=== PATIENT | female | born 1945 ===

== ENCOUNTER 2016-11-14 16:52 | Inpatient (IN) | payer MEDICARE, MEDICAID ==
--- NOTE | 2016-11-14 18:05 | ED PDOC ---
HPI: Back Time Seen by Provider: 11/14/16 17:07 Chief Complaint (Nursing): GI Problem Chief Complaint (Provider): GI Problem History Per: Patient, Family History/Exam Limitations: no limitations Onset/Duration Of Symptoms: Hrs Current Symptoms Are (Timing): Still Present Quality Of Discomfort: "Pain" Severity: Moderate Previous Symptoms: None Associated Symptoms: None Additional Complaint(s): Patient is a 71 year old female who presents to ED for evaluation of generalized weakness, nausea, vomiting, chills and left upper back pain today. Patient was recently started on Amoxil for ear pain. Patient also reports left calf pain without swelling. Notes taking ASA daily. Patient denies SOB, chest pain, palpations, recent long distance traveling or recent surgery. Past Medical History Reviewed: Historical Data, Nursing Documentation, Vital Signs Vital Signs: Last Vital Signs Temp 97.3 F L 11/14/16 16:54 Pulse 84 11/14/16 16:54 Resp 20 11/14/16 16:54 BP 123/67 11/14/16 16:54 Pulse Ox 99 11/14/16 16:54 - Medical History PMH: Diabetes, GERD, HTN, Hypercholesterolemia, Hypothyroidism, TIA Denies: HIV, Chronic Kidney Disease - Surgical History Surgical History: Cholecystectomy - Family History Family History: States: Unknown Family Hx, Diabetes - Living Arrangements Living Arrangements: With Family - Social History Current smoker - smoking cessation education provided: No Alcohol: None Drugs: Denies - Home Medications Home Medications: Ambulatory Orders Medication Instructions Recorded Levothyroxine [Synthroid] 50 mcg PO DAILY 05/16/15 Lisinopril 20 mg PO DAILY 05/16/15 Omeprazole [Prilosec] 40 mg PO DAILY 05/16/15 Aspirin [Aspirin EC] 81 mg PO DAILY #0 ect 05/17/15 [place]-3 Fatty Acids/Fish Oil [Fish 1 gm PO DAILY 11/13/15 Oil 1,000 mg Capsule] Ondansetron ODT [Zofran ODT] 1 odt PO Q6 PRN #20 odt 11/13/15 Rosuvastatin Calcium [Crestor] 5 mg PO HS 11/13/15 Sitagliptin Phos/Metformin HCl 1 tab PO DAILY 11/13/15 [Janumet 50-500 mg Tablet] Amoxicillin [Amoxil 500 mg Cap] 500 mg PO BID 11/14/16 - Allergies Allergies/Adverse Reactions: Allergies Allergy/AdvReac Type Severity Reaction Status Date / Time No Known Allergies Allergy Verified 05/16/15 13:33 Review of Systems ROS Statement: Except As Marked, All Systems Reviewed And Found Negative Constitutional: Positive for: Chills, Weakness (generalized ). Negative for: Fever ENT: Positive for: Ear Pain. Negative for: Nose Congestion, Throat Pain Cardiovascular: Negative for: Chest Pain, Palpitations, Light Headedness Respiratory: Negative for: Shortness of Breath Gastrointestinal: Positive for: Nausea, Vomiting. Negative for: Abdominal Pain Genitourinary Female: Negative for: Dysuria Musculoskeletal: Positive for: Back Pain, Leg Pain. Negative for: Neck Pain Skin: Negative for: Rash Physical Exam - Reviewed Nursing Documentation Reviewed: Yes Vital Signs Reviewed: Yes - Physical Exam Appears: Positive for: Non-toxic, No Acute Distress Skin: Positive for: Normal Color, Warm Eye Exam: Positive for: Normal appearance Neck: Positive for: Normal, Painless ROM, Supple Cardiovascular/Chest: Positive for: Regular Rate, Rhythm, Chest Non Tender. Negative for: Murmur Respiratory: Positive for: Normal Breath Sounds. Negative for: Respiratory Distress Gastrointestinal/Abdominal: Positive for: Normal Exam. Negative for: Tenderness , Distended Back: Positive for: Normal Inspection, Other (slight left upper back tenderness (-) erythema ) Extremity: Positive for: Normal ROM. Negative for: Pedal Edema, Calf Tenderness , Swelling Neurologic/Psych: Positive for: Alert, Oriented. Negative for: Motor/Sensory Deficits - Laboratory Results Result Diagrams: 11/15/16 06:55 11/15/16 06:55 - ECG O2 Sat by Pulse Oximetry: 99 (RA) Pulse Ox Interpretation: Normal Medical Decision Making Medical Decision Making: Time: 1800 Initial impression: R/O DVT Initial plan: * CMP * CBC * Chest X-Ray * US Lower Extremities * CT Scan A/P * Morphine 2 mg * Iohexol 50 ml PO * Zofran 4 mg IV * Reevaluation 18:22 Patient is to be placed in ED Obs secondary to ED workup. Scribe Attestation: Documented by Carol Sawant acting as a scribe for Eusebio Tracey MD MD Scribe Attestation: All medical record entries made by the Scribe were at my direction and personally dictated by me. I have reviewed the chart and agree that the record accurately reflects my personal performance of the history, physical exam, medical decision making, and the department course for this patient. I have also personally directed, reviewed, and agree with the discharge instructions and disposition. ED OBSERVATION Date of observation admission: 11/14/16 Time of observation admission: 18:22 - Progress Note Progress Note: 18:22 Patient is to be placed in ED Obs secondary to ED workup. 18:35 EKG showed normal sinus rhythm at 77 BPM, no ST elevation. [address] hurley pending workup and dispo 11/16/16 06:00 11/16/16 06:39 11/16/16 06:40 11/16/16 06:40 Disposition - Clinical Impression Clinical Impression: Abdominal pain, Diverticulosis, Elevated transaminase level - Patient ED Disposition Is Patient to be Admitted: Transfer of Care Counseled Patient/Family Regarding: Studies Performed, Diagnosis, Need For Followup - Disposition Disposition: Transfer of Care Disposition Time: 19:40 Condition: STABLE Patient Signed Over To: Marlon Hurley
[2016-11-14] MEDS ORDERED: Iohexol 240 (50 ml) PO ONE (18:21)
[2016-11-14] MEDS ORDERED: Iohexol 240 (50 ml) ONE (18:50)
[2016-11-14 18:51] LABS: BASO # 0.1 K/uL (0.0-0.2); BASO % 0.4 % (0.0-2.0); EOS % 0.4 % (0.0-4.0); HEMATOCRIT 35.9 % (34.0-47.0); LYMPH # 0.5 K/uL (1.0-4.3); LYMPH % 3.7 % (20.0-40.0); MEAN CELL VOLUME 90.8 fl (81.0-99.0); MEAN CORPUSCULAR HEMOGLOBIN 30.1 pg (27.0-31.0); MEAN CORPUSCULAR HGB CONC 33.1 g/dL (33.0-37.0); MEAN PLATELET VOLUME 10.4 fl (7.2-11.7); MONO # 0.5 K/uL (0.0-0.8); NEUT # 12.4 K/uL (1.8-7.0); NEUT % 91.5 % (50.0-75.0); PLATELET COUNT 182 K/uL (130-400); WHITE BLOOD COUNT 13.5 K/uL (4.8-10.8)
[2016-11-14 19:12] LABS: ALB/GLOB RATIO 1.2 (1.0-2.1); ALKALINE PHOSPHATASE 122 U/L (38-126); ALT/SGPT 153 U/L (9-52); AST/SGOT 380 U/L (14-36); BILIRUBIN,TOTAL 1.1 mg/dl (0.2-1.3); BLOOD UREA NITROGEN 23 mg/dl (7-17); CALCIUM 9.4 mg/dL (8.4-10.2); CARBON DIOXIDE 27 mmol/L (22-30); CHLORIDE 102 mmol/L (98-107); GFR AFRICAN-AMERICAN > 60; GLUCOSE,RANDOM 134 mg/dL (65-105); POTASSIUM 3.8 MMOL/L (3.6-5.0); SODIUM 146 mmol/l (132-148); TOTAL PROTEIN 7.5 G/DL (6.3-8.2)
[2016-11-14 19:44] LABS: EOSINOPHIL 1 % (0-7); NEUTROPHIL 87 % (42-75); TOTAL CELLS COUNTED 100
[2016-11-14] MEDS ORDERED: Iohexol 300 100 ML IJ ONE (20:47)
[2016-11-14] MEDS ORDERED: Sodium Chloride 0.9% 50 ML IV ONE (20:47)
--- NOTE | 2016-11-14 21:04 | ED PDOC ---
- Laboratory Results Result Diagrams: 11/14/16 18:40 11/14/16 18:40 - ECG O2 Sat by Pulse Oximetry: 99 (RA) Medical Decision Making Medical Decision Makin:00 Patient signed over to me by Dr. Eusebio Tracey pending labs, imaging, and reevaluation. 23:42 Patient for Obs status. Case consulted with Dr. De Luna who has asked that pt be made full admission. Given CT findings were are negative, the provider still has strong clinical suspicion given elevated white count with left shift, low grade fever, and LLQ tenderness. Will admit for treatment of abdominal pain, acute diverticulosis (r/o diverticulitis), and elevated transaminases. Disposition - Clinical Impression Clinical Impression: Abdominal pain, Diverticulosis, Elevated transaminase level - POA Present On Arrival: None - Disposition Disposition: Admitted as In-Patient Disposition Time: 06:25 Condition: FAIR
--- NOTE | 2016-11-14 22:24 | CT ---
EXAM: CT Abdomen and Pelvis With Intravenous Contrast. CLINICAL HISTORY: 71 years old, female; Pain; Abdominal pain; Localized; Left lower quadrant (llq); Patient HX: Pt states: Llq pain shooting to the back; Additional info: Abd pain. Sent ed physician doc. With request TECHNIQUE: Axial computed tomography images of the abdomen and pelvis with intravenous contrast. This CT exam was performed using one or more of the following dose reduction techniques: automated exposure control, adjustment of the mA and/or kV according to patient size, and/or use of iterative reconstruction technique. Coronal and sagittal reformatted images were created and reviewed. CONTRAST: 90 mL of [id number] administered intravenously. COMPARISON: CT ABD AND PELV W/CONTRAST 04/15/2013 11:13:00 PM FINDINGS: Limitations: Motion artifact - mild. Lower thorax: 2.2 x 0.9 x 1.2 cm fluid/soft tissue density lesion with adjacent calcifications within LEFT breast, grossly stable. Mild cardiomegaly. Mild atelectasis/scarring. Small hiatal hernia. ABDOMEN: Liver: Mild intrahepatic ductal dilatation, similar to minimally increased from previous examination. Gallbladder and bile ducts: Mildly dilated common bile duct, similar to minimally increased from previous examination. Pancreas: No ductal dilation. No mass. Spleen: No splenomegaly. Adrenals: No mass. Kidneys and ureters: Mild lobulation of kidneys. No hydronephrosis. Stomach and bowel: Few scattered diverticula within colon. No associated inflammatory stranding. No definite mural thickening. No obstruction. Appendix: Normal caliber. No inflammation. PELVIS: Bladder: Unremarkable. Reproductive: Small fat-containing lesion with adjacent calcification within uterus, stable. ABDOMEN and PELVIS: Intraperitoneal space: No significant fluid collection. No free air. Bones/joints: Degenerative anterolisthesis of lower lumbar spine. Mild degenerative changes of spine. No acute fracture. Soft tissues: Tiny umbilical hernia containing fat. Small to moderate ventral hernia containing fat. Vasculature: Minimal atherosclerotic disease. No abdominal aortic aneurysm. Lymph nodes: No pathologically enlarged lymph nodes. IMPRESSION: 1. Diverticulosis without CT evidence of diverticulitis. 2. Incidental/non-acute findings are described above.
[2016-11-14] MEDS ORDERED: metroNIDAZOLE 500mg/100ml NS 100 ML IVPB STA (23:32)
[2016-11-14] MEDS ORDERED: Ciprofloxacin 400mg/200ml D5W 200 ML IVPB STA (23:32)
[2016-11-15] MEDS ORDERED: Sodium Chloride 0.9% 1,000 ML IV STA (00:27)
[2016-11-15] MEDS ORDERED: metroNIDAZOLE 500mg/100ml NS 100 ML IVPB ONE (00:39)
[2016-11-15] MEDS: metroNIDAZOLE 500mg/100ml NS 250 MG in Premixed IV 1 EA IVPB SCH ×3 (01:28→17:34)
[2016-11-15 07:12] LABS: HEMATOCRIT 30.3 % (34.0-47.0); MEAN CELL VOLUME 91.3 fl (81.0-99.0); MEAN CORPUSCULAR HEMOGLOBIN 30.9 pg (27.0-31.0); MEAN CORPUSCULAR HGB CONC 33.9 g/dL (33.0-37.0); RED CELL DISTRIBUTION WIDTH 13.1 % (11.5-14.5); WHITE BLOOD COUNT 6.3 K/uL (4.8-10.8)
[2016-11-15 07:26] LABS: BLOOD UREA NITROGEN 18 mg/dl (7-17); CALCIUM 8.5 mg/dL (8.4-10.2); CARBON DIOXIDE 26 mmol/L (22-30); CHLORIDE 105 mmol/L (98-107); GFR AFRICAN-AMERICAN > 60; GLUCOSE,RANDOM 103 mg/dL (65-105); LIPASE 68 U/L (23-300); POTASSIUM 3.8 MMOL/L (3.6-5.0); SODIUM 143 mmol/l (132-148)
[2016-11-15 07:29] LABS: PARTIAL THROMBOPLASTIN TIME 26.4 SECONDS (23.3-32.5)
--- NOTE | 2016-11-15 08:58 | RAD ---
HISTORY: back pain COMPARISON: Comparison is made to the previous study dated 11/13/2015 FINDINGS: LUNGS: Small bibasilar opacities seen likely atelectasis. There is mild elevation of the right hemidiaphragm. Prominent lung markings. PLEURA: No significant pleural effusion identified, no pneumothorax apparent. CARDIOVASCULAR: Normal. OSSEOUS STRUCTURES: No significant abnormalities. VISUALIZED UPPER ABDOMEN: Normal. OTHER FINDINGS: None. IMPRESSION: Possible small bibasilar atelectasis.
[2016-11-15] MEDS ORDERED: Ciprofloxacin 200mg/100ml D5W 100 ML IVPB SCH (09:00)
[2016-11-15] MEDS ORDERED: metroNIDAZOLE 500mg/100ml NS 100 ML IVPB SCH (09:00)
[2016-11-15] MEDS: Insulin Regular 100 units/ml SC SCH ×4 (09:14→22:31)
[2016-11-15] MEDS: Dextrose 5%/0.45% NS 1,000 ML IV SCH ×2 (09:15→17:34)
[2016-11-15] MEDS: Ciprofloxacin 400mg/200ml D5W 200 ML IVPB SCH ×2 (09:17→20:16)
[2016-11-15 09:42] LABS: ALB/GLOB RATIO 1.2 (1.0-2.1); BILIRUBIN,TOTAL 0.9 mg/dl (0.2-1.3)
--- NOTE | 2016-11-15 10:23 | US ---
PROCEDURE: Bilateral lower extremity venous duplex Doppler. HISTORY: left leg pain COMPARISON: None available. TECHNIQUE: Bilateral common femoral, superficial femoral, popliteal and posterior tibial veins were evaluated. Flow was assessed with color Doppler, compressibility, assessment of phasic flow and augmentation response. FINDINGS: COMMON FEMORAL VEIN: Right CFV: Unremarkable. Left CFV: Unremarkable. SUPERFICIAL FEMORAL VEIN: Right SFV: Unremarkable. Left SFV: Unremarkable. POPLITEAL VEIN: Right Popliteal: Unremarkable. Left Popliteal: Unremarkable. POSTERIOR TIBIAL VEIN: Right PTV: Unremarkable. Left PTV: Unremarkable. OTHER FINDINGS: None. IMPRESSION: No evidence of deep venous thrombosis. Concordant results (preliminary interpretation) provided by [facility]. Procedure Completed: 19:36. Preliminary ([facility]) Report: Dictated and Authenticated: 20:00. Final Interpretation: 10:28. November 15, 2016.
--- NOTE | 2016-11-15 12:15 | HP ---
HISTORY OF PRESENT ILLNESS: The patient is a 71-year-old female admitted from the Emergency Room bec ause of abdominal pain, generalized weakness, nausea, vomiting and chills, and left upper back pain o n the day of admission. She was recently given amoxicillin for ear pain and left calf pain, but symp toms, however, worsened. PAST MEDICAL HISTORY: Diabetes mellitus, gastroesophageal reflux disease, hypertension, hyperlipidem ia, hypothyroidism, TIA. FAMILY HISTORY: Nonrevealing. SOCIAL HISTORY: She does not smoke or drink. REVIEW OF SYSTEMS: Essentially unremarkable. PHYSICAL EXAMINATION: GENERAL: The patient is alert, oriented, appears to be much more comfortable since admission. VITAL SIGNS: Blood pressure 96/54, pulse of 61, respiratory rate 18. She is afebrile. O2 sat 97% o n room air. SKIN: Shows fair turgor. HEENT: Pupils equal and reactive to light and accommodation. Mouth shows fair hygiene. NECK: JVP flat. LUNGS: Clear. HEART: Regular. No murmurs or gallops. ABDOMEN: Soft. No generalized tenderness appreciated. EXTREMITIES: Shows no edema or cyanosis. GENITALIA AND RECTAL: Unremarkable. LABORATORY DATA: Reviewed and remarkable findings are a hemoglobin of 10.3, WBC 13.5. Sodium 146, p otassium 3.8, BUN of 23, creatinine 0.6. AST 318, ALT 153, lipase 68. CT scan of abdomen and pelvis is remarkable for diverticular disease without diverticulitis. Chest x-ray official report pending. IMPRESSION: Diverticular disease with gastritis and elevated liver function studies of questionable etiology, diabetes mellitus, hypertension, hyperlipidemia. PLAN: Hold medications for now, clear liquids by mouth, IV hydration, gastroenterology evaluation ob tain hepatitis panel, repeat liver function studies. Further therapy will depend on gastroenterology evaluation. Advance diet slowly once patient begins to tolerate clear liquids. Rakan De Luna MD cc: [id number] TT: 11/15/2016 12:14:36 beatrice
--- NOTE | 2016-11-15 14:39 | CON ---
DATE: 11/15/2016 REFERRING PHYSICIAN: Dr. Terrazas. REASON FOR CONSULTATION: Abdominal pain, nausea, vomiting, diarrhea with elevated LFTs. HISTORY OF PRESENT ILLNESS: This is a very saumya 71-year-old female, essentially comes in for nause a, vomiting and chills and left lower quadrant discomfort for the past 24-48 hours. The patient had amoxicillin started for ear pain on Monday, last dose was yesterday. Has no overt pain per se, had some diarrhea as well. No recent travel, sick contacts. Currently lying in bed, comfortable, in no apparent distress. PAST MEDICAL HISTORY: Diabetes, hypertension, hyperlipidemia, hypercholesterolemia and GERD. PAST SURGICAL HISTORY: Cholecystectomy. REVIEW OF SYSTEMS: All systems have been reviewed and negative apart from the HPI. PHYSICAL EXAMINATION: VITAL SIGNS: Here in the hospital are grossly unremarkable. GENERAL: This is a pleasant, elderly-appearing female lying in bed, comfortable, in no apparent dist ress. HEAD: Normocephalic, atraumatic. EYES: Pupils equally reactive bilaterally. No conjunctival pallor or icterus. NECK: Supple, normal range of motion. No lymphadenopathy appreciated. LUNGS: Coarse breath sounds bilaterally. HEART: S1, S2. Regular rate and rhythm. No murmurs appreciated. ABDOMEN: Soft, nontender. Bowel sounds present. No rebound or guarding. RECTAL: Deferred. EXTREMITIES: Pulses present bilaterally. SKIN: Warm, dry and intact. NEUROLOGIC: Alert and oriented x 3. LABORATORY DATA: Reviewed. WBCs 6.3, down from 13.5. Hemoglobin is 10.3, hematocrit of 30.3, plate let count is 153 and normal. INR 1.16. AST, ALT when came in was 381, 153, now it is . Alk p hos went up to 143. Total bili has been normal. There is normal lipase as well. A CAT scan shows d iverticulosis no itis, normal level. ASSESSMENT AND PLAN: This is 71-year-old female with multiple medical problems, now with elevated LF Ts, nausea, vomiting and diarrhea. This is unclear etiology, probably more likely nausea, vomiting a nd diarrhea for gastroenteritis and may be secondary reaction to the ear infection. The elevation of LFTs is more likely secondary to the amoxicillin given her just recently. Will check hepatitis A, B and C panel as well. In the meantime, aggressive IV hydration and advance diet as tolerated. Ultra sound is pending. Thank you for the consult. Pino Reynoso MD, PhD cc:Duarte Terrazas MD [id number] TT: 11/15/2016 14:39:15 Confirmation # [id number] Dictation # [id number]
[2016-11-16] MEDS: metroNIDAZOLE 500mg/100ml NS 250 MG in Premixed IV 1 EA IVPB SCH ×3 (00:50→17:16)
[2016-11-16] MEDS: Dextrose 5%/0.45% NS 1,000 ML IV SCH (02:49)
[2016-11-16] MEDS: Insulin Regular 100 units/ml SC SCH ×4 (06:31→22:37)
--- NOTE | 2016-11-16 08:23 | CP.PCM.PN ---
Subjective - Date & Time of Evaluation Date of Evaluation: 11/16/16 Time of Evaluation: 08:23 - Subjective Subjective: ABDOMINAL PAIN IMPROVED HEPATIC FUNCTION STILL ABNORMAL Objective - Vital Signs/Intake and Output Vital Signs (last 24 hours): Temp Pulse Resp BP Pulse Ox 99.8 F H 78 20 95/55 L 96 11/16/16 07:44 11/16/16 07:44 11/16/16 07:44 11/16/16 07:44 11/16/16 07:44 - Medications Medications: Current Medications Ciprofloxacin (Cipro 400mg/200ml Dsw) 200 mls @ 200 mls/hr IVPB Q12 RINKU Last Admin: 11/15/16 20:16 Dose: 200 mls/hr Metronidazole 250 mg/ (Miscellaneous) 50 mls @ 50 mls/hr IVPB Q8 [facility] Last Admin: 11/16/16 00:50 Dose: 50 mls/hr Insulin Human Regular (Humulin R) 0 units SC ACHS RINKU PRN Reason: Protocol Last Admin: 11/16/16 06:31 Dose: Not Given Morphine Sulfate (Morphine) 2 mg IVP Q4 PRN PRN Reason: Pain, severe (8-10) Ondansetron HCl (Zofran Inj) 4 mg IVP Q4 PRN PRN Reason: Nausea/Vomiting Pantoprazole Sodium (Protonix Inj) 40 mg IVP DAILY [facility] Last Admin: 11/15/16 09:18 Dose: 40 mg - Labs Labs: 11/15/16 06:55 11/15/16 06:55 PT 12.1 SECONDS (9.6-11.2) H 11/15/16 06:55 INR 1.16 (0.92-1.08) H 11/15/16 06:55 APTT 26.4 SECONDS (23.3-32.5) 11/15/16 06:55 - Constitutional Appears: Well - Head Exam Head Exam: ATRAUMATIC, NORMAL INSPECTION, NORMOCEPHALIC - Eye Exam Eye Exam: EOMI, Normal appearance, PERRL Pupil Exam: NORMAL ACCOMODATION, PERRL - ENT Exam ENT Exam: Mucous Membranes Moist, Normal Exam - Neck Exam Neck Exam: Full ROM, Normal Inspection. absent: Lymphadenopathy - Respiratory Exam Respiratory Exam: Clear to Ausculation Bilateral, NORMAL BREATHING PATTERN - Cardiovascular Exam Cardiovascular Exam: REGULAR RHYTHM, +S1, +S2. absent: Murmur - GI/Abdominal Exam GI & Abdominal Exam: Soft, Normal Bowel Sounds. absent: Tenderness - Rectal Exam Rectal Exam: NORMAL INSPECTION - Extremities Exam Extremities Exam: Full ROM, Normal Capillary Refill, Normal Inspection. absent : Joint Swelling, Pedal Edema - Back Exam Back Exam: NORMAL INSPECTION - Neurological Exam Neurological Exam: Alert, Awake, CN II-XII Intact, Normal Gait, Oriented x3 - Psychiatric Exam Psychiatric exam: Normal Affect, Normal Mood - Skin Skin Exam: Dry, Intact, Normal Color, Warm Assessment and Plan - Assessment and Plan (Free Text) Assessment: DIVERTICULAR DZ ABNORMAL LIVER FUNCTION STUDIES?ETHIOLOGY Plan: CONTINUE PRESENT RX MONITOR LFTS MAY NEED LIVER BX IF LFTS REMAIN ELEVATED GI EVAL APPRECIATED
[2016-11-16 08:29] LABS: ALB/GLOB RATIO 1.2 (1.0-2.1); ALKALINE PHOSPHATASE 127 U/L (38-126); ALT/SGPT 324 U/L (9-52); AST/SGOT 226 U/L (14-36); BILIRUBIN,TOTAL 0.3 mg/dl (0.2-1.3); BLOOD UREA NITROGEN 13 mg/dl (7-17); CALCIUM 8.5 mg/dL (8.4-10.2); CARBON DIOXIDE 26 mmol/L (22-30); CHLORIDE 105 mmol/L (98-107); GFR AFRICAN-AMERICAN > 60; GLUCOSE,RANDOM 151 mg/dL (65-105); POTASSIUM 3.8 MMOL/L (3.6-5.0); SODIUM 143 mmol/l (132-148); TOTAL PROTEIN 6.1 G/DL (6.3-8.2)
[2016-11-16] MEDS: Ciprofloxacin 400mg/200ml D5W 200 ML IVPB SCH ×2 (09:30→20:22)
--- NOTE | 2016-11-16 09:42 | US ---
HISTORY: elevated LFT COMPARISON: None. TECHNIQUE: Sonographic evaluation of the abdomen. FINDINGS: LIVER: Measures 16.0 cm. Patent portal vein. Portal venous flow: Hepatopetal. Unremarkeable echogenicity of the liver parenchyma. No mass. No intrahepatic bile duct dilatation. GALLBLADDER: Status post cholecystectomy. No abnormality is seen in the gallbladder fossa. COMMON BILE DUCT: Measures 5.2 mm. No stones. No dilatation. PANCREAS: Unremarkable as visualized. No mass. No ductal dilatation. RIGHT KIDNEY: Measures 10.8 x 4.7cm. Normal echogenicity. No calculus, mass, or hydronephrosis. LEFT KIDNEY: Measures 10.7 x 4.1cm. Normal echogenicity. No calculus, mass, or hydronephrosis. SPLEEN: Normal in size and contour. No mass. AORTA: No aneurysmal dilatation. IVC: Unremarkable. OTHER FINDINGS: None. IMPRESSION: No significant or acute findings to account for/ related to the clinical presentation.
--- NOTE | 2016-11-16 12:38 | CP.PCM.PN ---
Subjective - Date & Time of Evaluation Date of Evaluation: 11/16/16 Time of Evaluation: 12:36 - Subjective Subjective: GI: Dr. eRynoso Pt seen and examined. Sitting comfortably in bed, eating regular diet. States she's feeling a lot better. Abdominal pain has improved and she denies N/V. Denies any more episodes of diarrhea. No F/C. Objective - Vital Signs/Intake and Output Vital Signs (last 24 hours): Temp Pulse Resp BP Pulse Ox 99.8 F H 78 20 95/55 L 96 11/16/16 07:44 11/16/16 07:44 11/16/16 07:44 11/16/16 07:44 11/16/16 07:44 - Medications Medications: Current Medications Ciprofloxacin (Cipro 400mg/200ml Dsw) 200 mls @ 200 mls/hr IVPB Q12 [facility] Last Admin: 11/15/16 20:16 Dose: 200 mls/hr Metronidazole 250 mg/ (Miscellaneous) 50 mls @ 50 mls/hr IVPB Q8 [facility] Last Admin: 11/16/16 00:50 Dose: 50 mls/hr Insulin Human Regular (Humulin R) 0 units SC ACHS RINKU PRN Reason: Protocol Last Admin: 11/16/16 06:31 Dose: Not Given Morphine Sulfate (Morphine) 2 mg IVP Q4 PRN PRN Reason: Pain, severe (8-10) Ondansetron HCl (Zofran Inj) 4 mg IVP Q4 PRN PRN Reason: Nausea/Vomiting Pantoprazole Sodium (Protonix Inj) 40 mg IVP DAILY [facility] Last Admin: 11/15/16 09:18 Dose: 40 mg - Labs Labs: 11/15/16 06:55 11/16/16 06:20 PT 12.1 SECONDS (9.6-11.2) H 11/15/16 06:55 INR 1.16 (0.92-1.08) H 11/15/16 06:55 APTT 26.4 SECONDS (23.3-32.5) 11/15/16 06:55 - Constitutional Appears: Well, No Acute Distress - Eye Exam Eye Exam: Normal appearance - ENT Exam ENT Exam: Mucous Membranes Moist - Respiratory Exam Respiratory Exam: NORMAL BREATHING PATTERN - Cardiovascular Exam Cardiovascular Exam: RRR - GI/Abdominal Exam GI & Abdominal Exam: Soft. absent: Distended, Guarding, Tenderness - Extremities Exam Extremities Exam: absent: Tenderness - Neurological Exam Neurological Exam: Alert, Awake, Oriented x3 - Skin Skin Exam: Dry, Intact, Warm Assessment and Plan - Assessment and Plan (Free Text) Assessment: 71F with abdominal pain likely 2/2 colitis; resolving Plan: - liver enzymes trending down; likely elevated secondary to recent amoxicillin tx - tolerating regular diet - Hep Panel & US abdomen negative - ok to DC from GI standpoint with outpt monitoring of liver enzymes - d/w Dr. Angeles Baca, PGY-2
[2016-11-17] MEDS: metroNIDAZOLE 500mg/100ml NS 250 MG in Premixed IV 1 EA IVPB SCH ×2 (00:39→09:02)
[2016-11-17] MEDS: Insulin Regular 100 units/ml SC SCH (07:26)
[2016-11-17 07:58] VITALS: BP 119/66; PULSE 59; RESP 20; TEMP 98.9; O2SAT 97
[2016-11-17 08:24] LABS: ALB/GLOB RATIO 1.1 (1.0-2.1); BILIRUBIN,TOTAL 0.4 mg/dl (0.2-1.3); TOTAL PROTEIN 6.5 G/DL (6.3-8.2)
[2016-11-17] MEDS: Ciprofloxacin 400mg/200ml D5W 200 ML IVPB SCH (09:02)
--- NOTE | 2016-11-17 09:40 | CP.PCM.DIS ---
Provider - Provider Date of Admission: 11/14/16 23:30 Attending physician: Rakan De Luna MD Primary care physician: Angelito Yusuf MD Time Spent in preparation of Discharge (in minutes): 30 Diagnosis - Discharge Diagnosis (1) Abdominal pain Status: Acute (2) Diverticulosis Status: Acute (3) Elevated transaminase level Status: Acute Hospital Course - Lab Results Lab Results: Micro Results 11/14/16 23:45 Blood Blood Culture - Preliminary NO GROWTH AFTER 48 HOURS Most Recent Lab Values WBC 6.3 K/uL (4.8-10.8) D 11/15/16 06:55 RBC 3.31 Mil/uL (3.80-5.20) L 11/15/16 06:55 Hgb 10.3 g/dL (12.0-16.0) L 11/15/16 06:55 Hct 30.3 % (34.0-47.0) L 11/15/16 06:55 MCV 91.3 fl (81.0-99.0) 11/15/16 06:55 MCH 30.9 pg (27.0-31.0) 11/15/16 06:55 MCHC 33.9 g/dL (33.0-37.0) 11/15/16 06:55 RDW 13.1 % (11.5-14.5) 11/15/16 06:55 Plt Count 153 K/uL (130-400) 11/15/16 06:55 MPV 10.4 fl (7.2-11.7) 11/14/16 18:40 Neut % (Auto) 91.5 % (50.0-75.0) H 11/14/16 18:40 Lymph % (Auto) 3.7 % (20.0-40.0) L 11/14/16 18:40 [place] % (Auto) 4.0 % (0.0-10.0) 11/14/16 18:40 Eos % (Auto) 0.4 % (0.0-4.0) 11/14/16 18:40 Baso % (Auto) 0.4 % (0.0-2.0) 11/14/16 18:40 Neut # 12.4 K/uL (1.8-7.0) H 11/14/16 18:40 Lymph # 0.5 K/uL (1.0-4.3) L 11/14/16 18:40 [place]ff[place] # 0.5 K/uL (0.0-0.8) 11/14/16 18:40 Eos # 0.0 K/uL (0.0-0.7) 11/14/16 18:40 Baso # 0.1 K/uL (0.0-0.2) 11/14/16 18:40 Neutrophils % (Manual) 87 % (42-75) H 11/14/16 18:40 Band Neutrophils % 3 % (0-2) H 11/14/16 18:40 Lymphocytes % (Manual) 4 % (20-50) L 11/14/16 18:40 Monocytes % (Manual) 5 % (0-10) 11/14/16 18:40 Eosinophils % (Manual) 1 % (0-7) 11/14/16 18:40 Platelet Estimate Normal (NORMAL) 11/14/16 18:40 Anisocytosis (manual) Slight 11/14/16 18:40 Macrocytosis (manual) Slight 11/14/16 18:40 PT 12.1 SECONDS (9.6-11.2) H 11/15/16 06:55 INR 1.16 (0.92-1.08) H 11/15/16 06:55 APTT 26.4 SECONDS (23.3-32.5) 11/15/16 06:55 Sodium 143 mmol/l (132-148) 11/16/16 06:20 Potassium 3.8 MMOL/L (3.6-5.0) 11/16/16 06:20 Chloride 105 mmol/L (98-107) 11/16/16 06:20 Carbon Dioxide 26 mmol/L (22-30) 11/16/16 06:20 Anion Gap 16 (10-20) 11/16/16 06:20 BUN 13 mg/dl (7-17) 11/16/16 06:20 Creatinine 0.7 mg/dL (0.7-1.2) 11/16/16 06:20 Est GFR ( Amer) > 60 11/16/16 06:20 Est GFR (Non-Af Amer) > 60 11/16/16 06:20 POC Glucose (mg/dL) 124 mg/dL (65-110) H 11/17/16 05:44 Random Glucose 151 mg/dL (65-105) H 11/16/16 06:20 Lactic Acid 1.0 MMOL/L (0.7-2.1) 11/14/16 23:33 Calcium 8.5 mg/dL (8.4-10.2) 11/16/16 06:20 Total Bilirubin 0.4 mg/dl (0.2-1.3) 11/17/16 05:40 Direct Bilirubin 0.2 mg/ml (0.0-0.4) 11/17/16 05:40 AST 97 U/L (14-36) H D 11/17/16 05:40 ALT 220 U/L (9-52) H D 11/17/16 05:40 Alkaline Phosphatase 134 U/L (38-126) H 11/17/16 05:40 Troponin I < 0.0120 ng/mL (0.00-0.120) 11/14/16 21:31 NT-Pro-B Natriuret Pep 112 pg/ml (0-900) 11/14/16 21:31 Total Protein 6.5 G/DL (6.3-8.2) 11/17/16 05:40 Albumin 3.5 g/dL (3.5-5.0) 11/17/16 05:40 Globulin 3.0 gm/dL (2.2-3.9) 11/17/16 05:40 Albumin/Globulin Ratio 1.1 (1.0-2.1) 11/17/16 05:40 Lipase 68 U/L (23-300) 11/15/16 06:55 Hepatitis A IgM Ab Negative (NEGATIVE) 11/15/16 09:31 Hep Bs Antigen Negative (NEGATIVE) 11/15/16 09:31 Hep B Core IgM Ab Negative (NEGATIVE) 11/15/16 09:31 Hepatitis C Antibody Negative (NEGATIVE) 11/15/16 09:31 - Hospital Course Hospital Course: ABDOMINAL PAIN RESOLVED LFTS TRENDING DOWN Discharge Exam - Head Exam Head Exam: ATRAUMATIC, NORMAL INSPECTION, NORMOCEPHALIC - Eye Exam Eye Exam: EOMI, Normal appearance, PERRL Pupil Exam: NORMAL ACCOMODATION, PERRL - GI/Abdominal Exam GI & Abdominal Exam: Normal Bowel Sounds - Rectal Exam Rectal Exam: NORMAL INSPECTION - Neurological Exam Neurological exam: Alert, CN II-XII Intact, Normal Gait, Oriented x3, Reflexes Normal - Psychiatric Exam Psychiatric exam: Normal Affect, Normal Mood - Skin Skin Exam: Dry, Intact, Normal Color, Warm Discharge Plan - Follow Up Plan Condition: STABLE Disposition: HOME/ ROUTINE Patient education suggested?: Yes Additional Instructions: DC HOME TODAY FOLLOW UP WITH HELPER DRIVER AND PMD FOR MONITORING OF LIVER FUNCTION Referrals: Angelito Yusuf MD [Primary Care Provider] -
== END 2016-11-17 15:03 | disposition home or self-care (01) | DRG 392 ==
LOC: H.ER 16:52 → H.EROBSV 18:22 → H.ERHOLD 23:30 → OBSVTOIN 23:30 → H.MEDSURG1 11-15 00:55
PROVIDERS: ADMIT Internal Medicine Pulmonary Disease; ATTEND Internal Medicine Pulmonary Disease
DX: K57.90 Diverticulosis of intestine, part unspecified, without perforation or abscess without bleeding (principal); E11.9 Type 2 diabetes mellitus without complications; I10 Essential (primary) hypertension; E03.9 Hypothyroidism, unspecified; E78.00 Pure hypercholesterolemia, unspecified; E78.5 Hyperlipidemia, unspecified; K21.9 Gastro-esophageal reflux disease without esophagitis; K52.9 Noninfective gastroenteritis and colitis, unspecified; Z86.73 Personal history of transient ischemic attack (TIA), and cerebral infarction without residual deficits; K29.70 Gastritis, unspecified, without bleeding; R79.89 Other specified abnormal findings of blood chemistry

== ENCOUNTER 2017-04-11 13:08 | Emergency (ER) | payer OTHER, MEDICARE ==
[2017-04-11 13:15] VITALS: BP 155/84; PULSE 85; RESP 20; TEMP 98.2; O2SAT 96
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
[2017-04-11] MEDS ORDERED: Oxycodone/Acetaminophen 5/325 mg Tab PO STA (13:57)
[2017-04-11] MEDS ORDERED: Oxycodone/Acetaminophen 5/325 mg Tab ONE (14:05)
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
== END 2017-04-11 16:49 | disposition home or self-care (01) ==
LOC: H.ER 13:08
DX: S16.1XXA Strain of muscle, fascia and tendon at neck level, initial encounter (principal); S39.012A Strain of muscle, fascia and tendon of lower back, initial encounter; V43.62XA Car passenger injured in collision with other type car in traffic accident, initial encounter; Y92.410 Unspecified street and highway as the place of occurrence of the external cause; M51.37 Other intervertebral disc degeneration, lumbosacral region

== ENCOUNTER 2017-09-17 12:32 | Emergency (ER) | payer MEDICARE, MEDICAID ==
[2017-09-17 12:44] VITALS: TEMP 97; O2SAT 99
[2017-09-17] MEDS ORDERED: Lidocaine 5% Patch TD STA (12:56)
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
[2017-09-17] MEDS ORDERED: Lidocaine 5% Patch TD ONE (13:01)
[2017-09-17 13:42] VITALS: BP 148/74; PULSE 74; RESP 18
== END 2017-09-17 13:38 | disposition home or self-care (01) ==
LOC: H.ER 12:32
DX: M62.830 Muscle spasm of back (principal); I10 Essential (primary) hypertension; E11.9 Type 2 diabetes mellitus without complications

== ENCOUNTER 2017-12-30 11:27 | Emergency (ER) | payer MEDICARE, MEDICAID ==
[2017-12-30 11:43] VITALS: BP 151/81; PULSE 79; RESP 14; TEMP 98.7; O2SAT 98
[2017-12-30] MEDS ORDERED: Naproxen 500 MG TAB PO STA (11:43)
--- NOTE | 2017-12-30 11:46 | ED PDOC ---
Lower Extremity Pain/Injury Time Seen by Provider: 12/30/17 11:35 Chief Complaint (Nursing): Lower Extremity Problem/Injury History Per: Patient Onset/Duration Of Symptoms: Hrs (1) Current Symptoms Are (Timing): Still Present Severity: Moderate Pain Scale Rating Of: 4 Additional Complaint(s): Tripped and fell down steps with injury to left foot and ankle. Also with injury to left lower back and hip. No head injury. No neck pain. No LOC. Past Medical History Vital Signs: Last Vital Signs Temp 98.7 F 12/30/17 11:42 Pulse 79 12/30/17 11:42 Resp 14 12/30/17 11:42 BP 151/81 H 12/30/17 11:42 Pulse Ox 98 12/30/17 11:42 - Medical History PMH: Diabetes, GERD, HTN, Hypercholesterolemia, Hypothyroidism, TIA Denies: HIV, Chronic Kidney Disease - Surgical History Surgical History: Cholecystectomy - Family History Family History: States: Unknown Family Hx, Diabetes - Home Medications Home Medications: Ambulatory Orders Medication Instructions Recorded Levothyroxine [Synthroid] 50 mcg PO DAILY 05/16/15 Lisinopril 20 mg PO DAILY 05/16/15 Omeprazole [Prilosec] 40 mg PO DAILY 05/16/15 Aspirin [Aspirin EC] 81 mg PO DAILY #0 ect 05/17/15 [place]-3 Fatty Acids/Fish Oil [Fish 1 gm PO DAILY 11/13/15 Oil 1,000 mg Capsule] Ondansetron ODT [Zofran ODT] 1 odt PO Q6 PRN #20 odt 11/13/15 Rosuvastatin Calcium [Crestor] 5 mg PO HS 11/13/15 Sitagliptin Phos/Metformin HCl 1 tab PO DAILY 11/13/15 [Janumet 50-500 mg Tablet] Cyclobenzaprine [Cyclobenzaprine 10 mg PO TID PRN #15 tab 04/11/17 HCl] Ibuprofen [Motrin] 600 mg PO Q6H PRN #20 tab 04/11/17 Diazepam [Valium] 2 mg PO BID PRN #6 tab 09/17/17 Lidocaine 5% [Lidoderm] 1 ea TD DAILY PRN 5 Days patch 09/17/17 traMADol [Ultram] 50 mg PO Q8 #10 tab 12/30/17 - Allergies Allergies/Adverse Reactions: Allergies Allergy/AdvReac Type Severity Reaction Status Date / Time No Known Allergies Allergy Verified 05/16/15 13:33 Review of Systems Cardiovascular: Negative for: Chest Pain Respiratory: Negative for: Shortness of Breath Musculoskeletal: Positive for: Back Pain, Leg Pain, Foot Pain Neurological: Negative for: Weakness, Numbness Physical Exam - Physical Exam Appears: Positive for: Non-toxic, No Acute Distress Head Exam: Positive for: ATRAUMATIC, NORMAL INSPECTION, NORMOCEPHALIC Skin: Positive for: Normal Color, Warm, DRY Back: Positive for: Normal Inspection, Vertebral Tenderness Extremity: Positive for: Other (Mild tenderness left hip no deformity, no shortening. Left foot, tenderness, ecchymosis dorsum of foot with mild tenderness lateral maleolus) Neurologic/Psych: Positive for: Alert, Oriented. Negative for: Motor/Sensory Deficits - ECG O2 Sat by Pulse Oximetry: 98 (RA) Pulse Ox Interpretation: Normal Medical Decision Making Medical Decision Making: Time: 1143 Plan: -- Ankle Left 3 Views XR -- Foot Left 3 Views XR -- Hip MIN 2V w/ Pelvis LT XR Time: 1434 -- Patient will be discharged and instructed on crutch walking, no weight bearing. Scribe Attestation: Documented by Bogdan Gomez, acting as a scribe for Dr. Camron Aguilera MD. Provider Scribe Attestation: All medical record entries made by the Scribe were at my direction and personally dictated by me. I have reviewed the chart and agree that the record accurately reflects my personal performance of the history, physical exam, medical decision making, and the department course for this patient. I have also personally directed, reviewed, and agree with the discharge instructions and disposition. Disposition - Clinical Impression Clinical Impression: Foot fracture - Patient ED Disposition Is Patient to be Admitted: No Counseled Patient/Family Regarding: Studies Performed, Diagnosis, Need For Followup, Rx Given - Disposition Disposition: Routine/Home Disposition Time: 14:28 Condition: FAIR Prescriptions: traMADol [Ultram] 50 mg PO Q8 #10 tab Instructions: Foot Fracture (DC) Forms: [facility] (Uzbek) Print Language: POLISH
[2017-12-30] MEDS ORDERED: Naproxen 500 MG TAB PO ONE (12:09)
--- NOTE | 2017-12-30 13:12 | CP.PCM.CON ---
History of Present Illness - History of Present Illness History of Present Illness: Podiatry Consult Note - Dr. Pedersen 72F PMHx DM, HTN, HLD, hypothyroidism seen and evaluated in ED complaining of left lower extremity pain. Family present at bedside. Patient states approximately 1 hour ago, patient fell down some bleachers resulting in injury to her left foot, ankle, and hip. Denies LOC. Patient was unable to get up after the fall, thus was taken to [facility] ED by EMS for further evaluation. At present, patient complains of 7/10 pain in her left foot, also complains of discomfort in her ankle, leg, knee, and hip LLE. Patient states she is able to move her foot and leg though with difficulty. States she sees senior linux engineer Dr. Hu for foot and ankle care. Denies N/V/F/D/C/SOB/FERRER/dizziness. Review of Systems - Review of Systems All systems: reviewed and no additional remarkable complaints except (as per HPI ) Past Patient History - Infectious Disease Hx of Infectious Diseases: None - Past Medical History & Family History Past Medical History?: Yes - Past Social History Smoking Status: Never Smoked - CARDIAC Hx Hypercholesterolemia: Yes Hx Hypertension: Yes - PULMONARY Hx Respiratory Disorders: No - NEUROLOGICAL Hx Transient Ischemic Attacks (TIA): Yes - HEENT Hx HEENT Problems: Yes Other/Comment: eyeglasses - RENAL Hx Chronic Kidney Disease: No - ENDOCRINE/METABOLIC Hx Hypothyroidism: Yes - HEMATOLOGICAL/ONCOLOGICAL Hx Human Immunodeficiency Virus (HIV): No - INTEGUMENTARY Hx Dermatological Problems: No - MUSCULOSKELETAL/RHEUMATOLOGICAL Hx Musculoskeletal Disorders: No Hx Falls: No - GASTROINTESTINAL Hx Gastrointestinal Disorders: Yes Hx Gastroesophageal Reflux: Yes - GENITOURINARY/GYNECOLOGICAL Hx Genitourinary Disorders: No - PSYCHIATRIC Hx Psychophysiologic Disorder: No Hx Substance Use: No - SURGICAL HISTORY Hx Cholecystectomy: Yes - ANESTHESIA Hx Anesthesia: Yes Hx Anesthesia Reactions: No Hx Malignant Hyperthermia: No Meds Home Medications: Home Medication List Medication Instructions Recorded Confirmed Type traMADol [Ultram] 50 mg PO Q8 #10 tab 12/30/17 Rx Allergies/Adverse Reactions: Allergies Allergy/AdvReac Type Severity Reaction Status Date / Time No Known Allergies Allergy Verified 05/16/15 13:33 Physical Exam - Constitutional Appears: Well, Non-toxic, No Acute Distress - Extremities Exam Additional comments: VASC: DP and PT pulses palpable 2/4 b/l. CFT <3 seconds to all digits x10. Temperature gradient cool to cool b/l. No increase in warmth noted to LLE. Nonpitting edema noted to dorsolateral midfoot and lateral malleolus. NEURO: Gross sensation intact bilaterally. DERM: No open lesions noted. Ecchymosis noted to dorsolateral midfoot over EDB muscle belly. Skin diffusely dry. ORTHO: RLE = WNL LLE= Pain upon ROM MTJ. Negative piano miguel test. Pain on palpation bases of 3rd and 4th metatarsals. Pain upon calcaneal squeeze. Pain upon STJ ROM. Pain at Achilles tendon and insertion. Pain on palpation malleoli, lateral worse than medial. Pain on palpation peroneal tendons. Pain on palpation at ecchymosis in dorsolateral midfooot. Pain upon tibfib compression. Pain upon calf squeeze. Muscle strength 5/5 for all dorsiflexors, plantarflexors, inverters and everters with tenderness noted. Ankle joint ROM <10 degrees with the knee extended and >10 degrees with the knee flexed, full with pain but no crepitus noted. - Neurological Exam Neurological exam: Alert, Oriented x3 - Psychiatric Exam Psychiatric exam: Normal Affect, Normal Mood Results - Vital Signs Recent Vital Signs: Last Vital Signs Temp 98.7 F 12/30/17 11:42 Pulse 79 12/30/17 11:42 Resp 14 12/30/17 11:42 BP 151/81 H 12/30/17 11:42 Pulse Ox 98 12/30/17 13:00 Assessment & Plan - Assessment and Plan (Free Text) Assessment: 72F with left lower extremity pain s/p mechanical fall. Plan: Patient seen and evaluated Discussed with attending Dr. Pedersen - Dr. Hu notified Left ankle XR appears WNL, f/u final report Left foot XR suspicious of possible 3rd/4th metatarsal base fracture, f/u final report Matute compression dressing applied to LLE; patient to be WBAT LLE with assistance of crutches in a surgical shoe Recommend RICE therapy Pain control per ED Advised patient to follow up with Dr. Hu in office next week -Patient to keep Matute dressing clean/dry/intact until follow up appointment Stable for dc per podiatry Thank you for the consult
--- NOTE | 2017-12-31 07:36 | RAD ---
HISTORY: trauma COMPARISON: No prior FINDINGS: BONES: Normal. No fracture. JOINTS: Normal. No osteoarthritis. SOFT TISSUE: Normal. OTHER FINDINGS: None . IMPRESSION: Normal Bone Xray.
--- NOTE | 2017-12-31 07:41 | RAD ---
PROCEDURE: Left Foot Radiographs. HISTORY: trauma COMPARISON: None. FINDINGS: BONES: Normal. No fracture. JOINTS: Normal. SOFT TISSUES: Normal. OTHER FINDINGS: Plantar heel spur. IMPRESSION: Plantar heel spur.
--- NOTE | 2017-12-31 07:42 | RAD ---
HISTORY: trauma COMPARISON: No prior FINDINGS: BONES: Normal. No fracture. JOINTS: Normal. No osteoarthritis. SOFT TISSUE: Normal. OTHER FINDINGS: None . IMPRESSION: Normal Bone Xray.
== END 2017-12-30 14:54 | disposition home or self-care (01) ==
LOC: H.ER 11:27
DX: S92.302A Fracture of unspecified metatarsal bone(s), left foot, initial encounter for closed fracture (principal); M25.551 Pain in right hip; W10.8XXA Fall (on) (from) other stairs and steps, initial encounter; Y92.89 Other specified places as the place of occurrence of the external cause; E03.9 Hypothyroidism, unspecified; E11.9 Type 2 diabetes mellitus without complications; E78.00 Pure hypercholesterolemia, unspecified; I10 Essential (primary) hypertension; K21.9 Gastro-esophageal reflux disease without esophagitis; Z79.82 Long term (current) use of aspirin; Z86.73 Personal history of transient ischemic attack (TIA), and cerebral infarction without residual deficits

== ENCOUNTER 2018-06-01 00:10 | Emergency (ER) | payer MEDICARE, MEDICAID ==
[2018-06-01 00:26] VITALS: TEMP 98.4
[2018-06-01] MEDS ORDERED: Labetalol 5 mg/ml Inj 20ML IVP STA (00:33)
[2018-06-01 00:57] LABS: BASO # 0.1 K/uL (0.0-0.2); EOS # 0.2 K/uL (0.0-0.7); EOS % 1.2 % (0.0-4.0); LYMPH # 3.6 K/uL (1.0-4.3); LYMPH % 24.5 % (20.0-40.0); MEAN CELL VOLUME 91.1 fl (81.0-99.0); MEAN CORPUSCULAR HEMOGLOBIN 30.3 pg (27.0-31.0); MEAN CORPUSCULAR HGB CONC 33.2 g/dL (33.0-37.0); MEAN PLATELET VOLUME 10.3 fl (7.2-11.7); MONO # 1.3 K/uL (0.0-0.8); MONO % 8.7 % (0.0-10.0); NEUT # 9.6 K/uL (1.8-7.0); NEUT % 64.6 % (50.0-75.0); RBC 3.97 Mil/uL (3.80-5.20); RED CELL DISTRIBUTION WIDTH 13.6 % (11.5-14.5); WHITE BLOOD COUNT 14.8 K/uL (4.8-10.8)
[2018-06-01 00:59] LABS: PROTHROMBIN TIME 11.2 Seconds (9.8-13.1)
[2018-06-01 01:00] LABS: ALB/GLOB RATIO 1.2 (1.0-2.1); ALBUMIN 4.4 g/dL (3.5-5.0); ALT/SGPT 24 U/L (9-52); AST/SGOT 25 U/L (14-36); BLOOD UREA NITROGEN 18 mg/dl (7-17); CALCIUM 9.7 mg/dL (8.4-10.2); GFR NON-AFRICAN AMERICAN 49
[2018-06-01 01:01] LABS: PARTIAL THROMBOPLASTIN TIME 33.2 Seconds (25.6-37.1)
--- NOTE | 2018-06-01 01:34 | ED PDOC ---
HPI: Headache Time Seen by Provider: 06/01/18 00:22 Chief Complaint (Nursing): Headache Chief Complaint (Provider): headache History Per: Patient History/Exam Limitations: no limitations Onset/Duration Of Symptoms: Hrs (x4) Current Symptoms Are (Timing): Still Present Associated Symptoms: denies: Photophobia, Blurred Vision, Nausea, Vomiting Additional Complaint(s): Ashley Isabel is a 73 year old female, with a past medical history of diabetes, HTN, and dyslipidemia, who presents to the emergency department complaining of a headache onset for x4 hrs. Patient states 4 hours ago he started to get an occipital headache in the back of her head. Pain got progressively worst prompting ED visit. In triage patient is also reporting a tingling sensation in her left arm but has no trouble moving her arms. She denies any nausea, vomit, diarrhea, visual disturbances or associated facial drool or trouble walking. No further medical complaints. PMD: Dr. Yana Fabian NIHSS Stroke Scale - Date/Time Evaluation Performed Date Performed: 06/01/18 When Was NIHSS Performed: Baseline - How Severe is the Stroke Level of Consciousness: 0=Alert LOC to Questions: 0=Both comments correct LOC to commands: 0=Obeys both correctly Best Gaze: 0=Normal Visual: 0=No visual loss Facial: 0=Normal Motor Arm - Left: 0=No drift Motor Arm - Right: 0=No drift Motor Leg - Left: 0=No drift Motor Leg - Right: 0=No drift Limb Ataxia: 0=Absent Sensory: 0=Normal Best Language: 0=No aphasia Dysarthia: 0=Normal articulation Extinction & Inattention (Neglect): 0=Normal, no object Score: 0 Past Medical History Reviewed: Historical Data, Nursing Documentation, Vital Signs Vital Signs: Last Vital Signs Temp 98.4 F 06/01/18 00:24 Pulse 78 06/01/18 00:24 Resp 16 06/01/18 00:24 BP 163/81 H 06/01/18 00:24 Pulse Ox 96 06/01/18 00:24 - Medical History PMH: Diabetes, GERD, HTN, Hypercholesterolemia, Hypothyroidism, TIA Denies: HIV, Chronic Kidney Disease - Surgical History Surgical History: Cholecystectomy - Family History Family History: States: Unknown Family Hx, Diabetes - Social History Current smoker - smoking cessation education provided: No Alcohol: None Drugs: Denies - Home Medications Home Medications: Ambulatory Orders Medication Instructions Recorded Levothyroxine [Synthroid] 50 mcg PO DAILY 05/16/15 Lisinopril 20 mg PO DAILY 05/16/15 Omeprazole [Prilosec] 40 mg PO DAILY 05/16/15 Aspirin [Aspirin EC] 81 mg PO DAILY #0 ect 05/17/15 [place]-3 Fatty Acids/Fish Oil [Fish 1 gm PO DAILY 11/13/15 Oil 1,000 mg Capsule] Ondansetron ODT [Zofran ODT] 1 odt PO Q6 PRN #20 odt 11/13/15 Rosuvastatin Calcium [Crestor] 5 mg PO HS 11/13/15 Sitagliptin Phos/Metformin HCl 1 tab PO DAILY 11/13/15 [Janumet 50-500 mg Tablet] Cyclobenzaprine [Cyclobenzaprine 10 mg PO TID PRN #15 tab 04/11/17 HCl] Ibuprofen [Motrin] 600 mg PO Q6H PRN #20 tab 04/11/17 Diazepam [Valium] 2 mg PO BID PRN #6 tab 09/17/17 Lidocaine 5% [Lidoderm] 1 ea TD DAILY PRN 5 Days patch 09/17/17 traMADol [Ultram] 50 mg PO Q8 #10 tab 12/30/17 Cyclobenzaprine [Cyclobenzaprine 10 mg PO TID PRN #15 tab 06/01/18 HCl] - Allergies Allergies/Adverse Reactions: Allergies Allergy/AdvReac Type Severity Reaction Status Date / Time No Known Allergies Allergy Verified 06/01/18 00:26 Review of Systems ROS Statement: Except As Marked, All Systems Reviewed And Found Negative Eyes: Negative for: Vision Change Gastrointestinal: Negative for: Nausea, Vomiting, Diarrhea Neurological: Positive for: Headache (occipital ), Other (tingling sensation in left arm). Negative for: Incoordination Physical Exam - Reviewed Nursing Documentation Reviewed: Yes Vital Signs Reviewed: Yes - Physical Exam Appears: Positive for: No Acute Distress Head Exam: Positive for: ATRAUMATIC, NORMAL INSPECTION, NORMOCEPHALIC Skin: Positive for: Normal Color, Warm, Dry Eye Exam: Positive for: Normal appearance, EOMI, PERRL Neck: Positive for: Painless ROM Cardiovascular/Chest: Positive for: Regular Rate, Rhythm. Negative for: Murmur Respiratory: Positive for: Normal Breath Sounds. Negative for: Respiratory Distress Gastrointestinal/Abdominal: Positive for: Normal Exam, Soft. Negative for: Tenderness Back: Positive for: Normal Inspection. Negative for: Vertebral Tenderness Extremity: Positive for: Normal ROM (upper and lower extremities). Negative for: Tenderness, Deformity, Swelling Neurologic/Psych: Positive for: Alert, mower sharpener II-XII (intact), Oriented (x3), Cerebellar Tests (normal), Gait (steady). Negative for: Motor/Sensory Deficits, Aphasia, Facial Droop - Laboratory Results Result Diagrams: 06/01/18 00:38 06/01/18 00:38 - ECG O2 Sat by Pulse Oximetry: 96 (RA) Pulse Ox Interpretation: Normal Medical Decision Making Medical Decision Making: Time: 00:22 Initial Impression: headache Initial Plan: --Head w/o contrast [CT] --EKG --CMP --Troponin I --CBC w/ differential --PTT --PT --Glucose, POC --Trandate 10 mg IVP --Reevaluation 01:[address] COMMENTS: There is normal configuration of sella turcica. There are no intra or extra- axial collections. There is no mass effect or midline shift. There is no evidence of hematoma formation. No hydrocephalus is present. The ventricles are symmetrical. No abnormal calcifications are present. There is diffuse age-appropriate cerebellar and cerebral atrophy with proportionally dilated ventricles and cortical sulci. There are bilateral periventricular and subcortical white matter hypolucencies compatible with mild chronic microvascular disease. Otherwise, no significant focal abnormalities are seen either in the posterior fossa or supratentorial compartment. IMPRESSION: 1. Age-appropriate cerebellar and cerebral atrophy. 2. Mild chronic microvascular disease. 3. No evidence of acute intracranial pathology. 04:10 -Patient reports marked improvement of symptoms after taking Flexeril and Toradol. Patient is medically stable for discharge home with prescription for Flexeril. Diagnosis of tension headache, musculoskeletal pain and HTN. Patient advised to follow up with PMD. Scribe Attestation: Documented by Tremaine Vanegas, acting as a scribe for Marlon Hurley MD. Provider Scribe Attestation: All medical record entries made by the Scribe were at my direction and personal ly dictated by me. I have reviewed the chart and agree that the record accurately reflects my personal performance of the history, physical exam, medical decision making, and the department course for this patient. I have also personally directed, reviewed, and agree with the discharge instructions and disposition. Disposition - Clinical Impression Clinical Impression: Headache, Hypertension - Disposition Disposition: Routine/Home Disposition Time: 04:10 Condition: IMPROVED Prescriptions: Cyclobenzaprine [Cyclobenzaprine HCl] 10 mg PO TID PRN #15 tab PRN Reason: Muscle Pain Instructions: Tension Headache, High Blood Pressure in Adults Forms: [facility] (Uzbek) Print Language: ROMANIAN
[2018-06-01 08:12] VITALS: BP 118/72; PULSE 84; RESP 20; O2SAT 98
--- NOTE | 2018-06-01 10:21 | CARD ---
APPROVED REPORT Date of service: 06/01/2018 EKG Measurement Heart [id number] <Conclusion> Normal sinus rhythm Minimal voltage criteria for LVH, may be normal variant Inferior infarct, age undetermined Abnormal ECG
--- NOTE | 2018-06-01 10:58 | CT ---
Date of service: 06/01/2018 PROCEDURE: CT HEAD WITHOUT CONTRAST. HISTORY: headache COMPARISON: 04/11/2017 TECHNIQUE: Axial computed tomography images were obtained through the head/brain without intravenous contrast. Radiation dose: Total exam DLP = 724.27 mGy-cm. This CT exam was performed using one or more of the following dose reduction techniques: Automated exposure control, adjustment of the mA and/or kV according to patient size, and/or use of iterative reconstruction technique. FINDINGS: HEMORRHAGE: No intracranial hemorrhage. BRAIN: No mass effect or edema. Minimal diffuse cerebral atrophy. Minimal periventricular white matter lucency consistent with chronic microvascular ischemic change. No evidence of acute infarct. VENTRICLES: Unremarkable. No hydrocephalus. CALVARIUM: Unremarkable. PARANASAL SINUSES: Unremarkable as visualized. No significant inflammatory changes. MASTOID AIR CELLS: Unremarkable as visualized. No inflammatory changes. OTHER FINDINGS: None. IMPRESSION: No intracranial mass, hemorrhage or evidence of acute infarct. No interval change. The preliminary findings for this examination were reported by [facility] at 1:24 a.m. on 06/01/2018. There is concurrence of this report with the preliminary findings.
== END 2018-06-01 04:35 | disposition home or self-care (01) ==
LOC: H.ER 00:10
DX: G44.209 Tension-type headache, unspecified, not intractable (principal); I10 Essential (primary) hypertension; E03.9 Hypothyroidism, unspecified; E11.9 Type 2 diabetes mellitus without complications; E78.00 Pure hypercholesterolemia, unspecified; Z86.73 Personal history of transient ischemic attack (TIA), and cerebral infarction without residual deficits
CPT/HCPCS: 70450; 80053; 82948; 84484; 85025; 85610; 85730; 93005; 96374; 96375; 99285; J1885

== ENCOUNTER 2018-08-22 18:22 | Emergency (ER) | payer MEDICARE, MEDICAID ==
--- NOTE | 2018-08-22 22:26 | ED PDOC ---
HPI: CCC, URI, Sore Throat Time Seen by Provider: 08/22/18 21:51 Chief Complaint (Nursing): Flu-like Symptoms Chief Complaint (Provider): cough/congestion History Per: Patient, Family (daughter, patient prefers her translating) History/Exam Limitations: no limitations Onset/Duration Of Symptoms: Days (9) Current Symptoms Are (Timing): Still Present Additional Complaint(s): 73 y/o female presents with daughter for evaluation of cough/congestion x 9 days. Associated intermittent fevers, upper back pain, genearlized weakness. Patient was evaluated by her physician on Monday and prescribed a Zpak but symptoms persist. Denies headache, dizziness, chest pain, palpitations, abdominal pain, leg pain/swelling, recent travel. + sick contacts at home. Last dose Naproxen taken 14:00 Past Medical History Reviewed: Historical Data, Nursing Documentation, Vital Signs Vital Signs: Last Vital Signs Temp 98.8 F 08/22/18 21:20 Pulse 94 H 08/22/18 21:20 Resp 16 08/22/18 21:20 BP 151/80 H 08/22/18 21:20 Pulse Ox 97 08/22/18 21:20 - Medical History PMH: Diabetes, GERD, HTN, Hypercholesterolemia, Hypothyroidism, TIA Denies: HIV, Chronic Kidney Disease - Surgical History Surgical History: Cholecystectomy - Family History Family History: States: Unknown Family Hx, Diabetes - Home Medications Home Medications: Ambulatory Orders Medication Instructions Recorded RX: Levothyroxine [Synthroid] 50 mcg PO DAILY 05/16/15 RX: Lisinopril 20 mg PO DAILY 05/16/15 RX: Omeprazole [Prilosec] 40 mg PO DAILY 05/16/15 RX: Aspirin [Aspirin EC] 81 mg PO DAILY #0 ect 05/17/15 RX: [place]-3 Fatty Acids/Fish Oil 1 gm PO DAILY 11/13/15 [Fish Oil 1,000 mg Capsule] RX: Ondansetron ODT [Zofran ODT] 1 odt PO Q6 PRN #20 odt 11/13/15 RX: Rosuvastatin Calcium [Crestor] 5 mg PO HS 11/13/15 RX: Sitagliptin Phos/Metformin HCl 1 tab PO DAILY 11/13/15 [Janumet 50-500 mg Tablet] Cyclobenzaprine [Cyclobenzaprine 10 mg PO TID PRN #15 tab 04/11/17 HCl] Ibuprofen [Motrin] 600 mg PO Q6H PRN #20 tab 04/11/17 Diazepam [Valium] 2 mg PO BID PRN #6 tab 09/17/17 Lidocaine 5% [Lidoderm] 1 ea TD DAILY PRN 5 Days patch 09/17/17 RX: traMADol [Ultram] 50 mg PO Q8 #10 tab 12/30/17 Cyclobenzaprine [Cyclobenzaprine 10 mg PO TID PRN #15 tab 06/01/18 HCl] Acetaminophen [Tylenol 325mg tab] 2 tab PO Q4 PRN #30 tab 08/23/18 Levofloxacin [Levaquin] 750 mg PO DAILY #7 tablet 08/23/18 Promethazine/Phenyleph/Codeine 5 ml PO BID PRN #50 ml 08/23/18 [Bfmqrnpaobpg-UP-Nmdhhhf Syrup] RX: Albuterol HFA [Ventolin HFA 90 1 puff IH Q4 PRN #1 inh 08/23/18 mcg/actuation (8 g)] - Allergies Allergies/Adverse Reactions: Allergies Allergy/AdvReac Type Severity Reaction Status Date / Time No Known Allergies Allergy Verified 08/22/18 21:19 Review of Systems ROS Statement: Except As Marked, All Systems Reviewed And Found Negative Constitutional: Positive for: Fever, Chills, Weakness Respiratory: Positive for: Cough, Sputum Musculoskeletal: Positive for: Back Pain Physical Exam - Reviewed Nursing Documentation Reviewed: Yes Vital Signs Reviewed: Yes - Physical Exam Appears: Positive for: Well, Non-toxic, No Acute Distress Head Exam: Positive for: ATRAUMATIC, NORMAL INSPECTION, NORMOCEPHALIC Skin: Positive for: Normal Color Eye Exam: Positive for: Normal appearance ENT: Positive for: TM Is/Are (clear bilaterally), Nasal Congestion, Pharyngeal Erythema. Negative for: Tonsillar Exudate, Tonsillar Swelling Neck: Positive for: Normal, Painless ROM Cardiovascular/Chest: Positive for: Regular Rate, Rhythm Respiratory: Positive for: Normal Breath Sounds Gastrointestinal/Abdominal: Positive for: Normal Exam Back: Positive for: Muscle Spasm (upper back paraspinal tenderness). Negative for: L CVA Tenderness, R CVA Tenderness, Vertebral Tenderness, Decreased ROM Extremity: Positive for: Normal ROM Neurologic/Psych: Positive for: Alert, Oriented (x3) - Laboratory Results Result Diagrams: 08/22/18 23:06 08/22/18 23:20 - ECG ECG: Positive for: Viewed By Me (reviewed by ED attending) ECG Rhythm: Positive for: Sinus Rhythm, Nonspecific Changes O2 Sat by Pulse Oximetry: 97 - Radiology X-Ray: Viewed By Me X-Ray Interpretation: No Acute Disease - Progress ED Course And Treament: -cbc -cmp -influenza -rapid strep -cxr -ekg -IV NS IV rocephin given for elevated WBC, UTI. On re-eval, patient states she is feeling better Patient/daughter offered admission for IV abx but patient states she would like to go home. Patient educated on findings, discharged with rx Albuterol HFA, Promethazine with codeine, Levaquin, Tylenol Encouraged increase fluid intake. Rest Follow up with primary doctor within 2-3 days Return precautions given Disposition - Clinical Impression Clinical Impression: Bronchitis, UTI (urinary tract infection) - Patient ED Disposition Is Patient to be Admitted: No Counseled Patient/Family Regarding: Studies Performed, Diagnosis, Need For Followup, Rx Given - Disposition Disposition: Routine/Home Disposition Time: 05:07 Condition: IMPROVED Prescriptions: Acetaminophen [Tylenol 325mg tab] 2 tab PO Q4 PRN #30 tab PRN Reason: Fever >100.4 F RX: Albuterol HFA [Ventolin HFA 90 mcg/actuation (8 g)] 1 puff IH Q4 PRN #1 inh PRN Reason: Wheezing Levofloxacin [Levaquin] 750 mg PO DAILY #7 tablet Promethazine/Phenyleph/Codeine [Ecuqlmjnofhq-AA-Tdyenop Syrup] 5 ml PO BID PRN #50 ml PRN Reason: Cough Instructions: Urinary Tract Infections in Adults, Acute Bronchitis Forms: [facility] (Armenian) Print Language: SAMI
[2018-08-22] MEDS ORDERED: Albuterol-Ipratrop 3 mg / 0.5 (3 ml) UD IH STA (23:35)
[2018-08-22] MEDS ORDERED: Sodium Chloride 0.9% 1,000 ML IV STA (23:35)
[2018-08-22 23:43] LABS: BASO # 0.1 K/uL (0.0-0.2); BASO % 0.8 % (0.0-2.0); EOS # 0.1 K/uL (0.0-0.7); EOS % 0.3 % (0.0-4.0); HEMOGLOBIN 10.9 g/dL (12.0-16.0); LYMPH % 5.8 % (20.0-40.0); MEAN CELL VOLUME 89.7 fl (81.0-99.0); MEAN CORPUSCULAR HEMOGLOBIN 29.5 pg (27.0-31.0); MEAN CORPUSCULAR HGB CONC 32.9 g/dL (33.0-37.0); MEAN PLATELET VOLUME 9.9 fl (7.2-11.7); MONO # 1.4 K/uL (0.0-0.8); NEUT # 14.9 K/uL (1.8-7.0); NEUT % 85.1 % (50.0-75.0); RBC 3.68 Mil/uL (3.80-5.20); RED CELL DISTRIBUTION WIDTH 13.5 % (11.5-14.5); WHITE BLOOD COUNT 17.5 K/uL (4.8-10.8)
[2018-08-22 23:48] LABS: SQUAMOUS EPITHIAL 5 /hpf (0-5); URINE BACTERIA OCC (<OCC); URINE BILIRUBIN NEGATIVE (NEGATIVE); URINE BLOOD SMALL (NEGATIVE); URINE CLARITY CLOUDY (Clear); URINE COLOR YELLOW (YELLOW); URINE GLUCOSE (UA) 50 mg/dL (NEGATIVE); URINE LEUKOCYTE ESTERASE LARGE Leu/uL (Negative); URINE PROTEIN 30 mg/dL (NEGATIVE); URINE UROBILINOGEN 0.2-1.0 mg/dL (0.2-1.0); WBC CLUMPS FEW /hpf
[2018-08-23 03:04] VITALS: RESP 18
[2018-08-23] MEDS ORDERED: cefTRIAXone (Rocephin) 1 gm Inj ONE (03:13)
[2018-08-23 03:30] LABS: ALB/GLOB RATIO 1.2 (1.0-2.1); ALBUMIN 4.1 g/dL (3.5-5.0)
[2018-08-23 04:50] VITALS: BP 102/53
[2018-08-23 05:10] VITALS: O2SAT 97
[2018-08-23 05:25] VITALS: PULSE 89; TEMP 98.7
[2018-08-23 09:45] LABS: VENOUS BLOOD GAS BASE EXCESS 0.1 mmol/L (0.0-2.0); VENOUS BLOOD GAS PCO2 39 mmHg (40-60); VENOUS BLOOD GAS PO2 25 mm/Hg (30-55); VENOUS BLOOD PH 7.41 (7.32-7.43)
--- NOTE | 2018-08-23 12:27 | RAD ---
Date of service: 08/23/2018 HISTORY: fever, cough COMPARISON: 11/14/2016 TECHNIQUE: Chest PA and lateral FINDINGS: LUNGS: No active pulmonary disease. PLEURA: No significant pleural effusion identified. No pneumothorax apparent. CARDIOVASCULAR: No aortic atherosclerotic calcification present. Normal cardiac size. No pulmonary vascular congestion. OSSEOUS STRUCTURES: No significant abnormalities. VISUALIZED UPPER ABDOMEN: Normal. OTHER FINDINGS: None. IMPRESSION: No active disease. No significant interval change compared to the prior examination(s).
== END 2018-08-23 05:39 | disposition home or self-care (01) ==
LOC: H.ER 18:22
DX: J40 Bronchitis, not specified as acute or chronic (principal); N39.0 Urinary tract infection, site not specified
CPT/HCPCS: 71046; 80053; 81003; 82803; 82948; 85025; 87040; 87070; 87086; 87181; 87205; 87430; 87804; 94640; 96360; 96361; 96365; 99284; J0696; J7040

== ENCOUNTER 2018-08-24 13:07 | Inpatient (IN) | payer MEDICARE, MEDICAID ==
[2018-08-24] MEDS ORDERED: Sodium Chloride 0.9% 500 ML IV STA (15:10)
--- NOTE | 2018-08-24 15:30 | ED PDOC ---
HPI: CCC, URI, Sore Throat Time Seen by Provider: 08/24/18 15:03 Chief Complaint (Nursing): Fever Chief Complaint (Provider): Cough and Back pain History Per: Patient History/Exam Limitations: no limitations Onset/Duration Of Symptoms: Days (x 3) Current Symptoms Are (Timing): Still Present Associated Symptoms: Fever, Cough, Myalgias (flank pain) Additional Complaint(s): 73 year old female with a history of HTN, gastritis, DM, TIA and hypothyroidism presents to the ED for cough, right flank pain and fever. Patient was seen in this ED two days ago for a persistent cough. She previously completed a Z-pack without improvement of symptoms. At the time, she was diagnosed with a UTI and offered admission for IV antibiotics which she declined. Last night she developed a fever and right sided flank pain in addition to the cough. Offers no other complaints. PMD: Dr. Leslee Fabian Past Medical History Reviewed: Historical Data, Nursing Documentation, Vital Signs Vital Signs: Last Vital Signs Temp 99.8 F H 08/24/18 13:33 Pulse 95 H 08/24/18 13:33 Resp 20 08/24/18 13:33 BP 119/71 08/24/18 13:33 Pulse Ox 98 08/24/18 13:33 - Medical History PMH: Diabetes, Gall Bladder Disease, GERD, HTN, Hypercholesterolemia, Hypothyroidism, TIA Denies: HIV, Chronic Kidney Disease - Surgical History Surgical History: Cholecystectomy - Family History Family History: States: Diabetes, Hypertension - Social History Current smoker - smoking cessation education provided: No - Home Medications Home Medications: Ambulatory Orders Medication Instructions Recorded RX: Levothyroxine [Synthroid] 50 mcg PO DAILY 05/16/15 RX: Lisinopril 20 mg PO DAILY 05/16/15 RX: Omeprazole [Prilosec] 40 mg PO DAILY 05/16/15 RX: Aspirin [Aspirin EC] 81 mg PO DAILY #0 ect 05/17/15 RX: [place]-3 Fatty Acids/Fish Oil 1 gm PO DAILY 11/13/15 [Fish Oil 1,000 mg Capsule] Acetaminophen [Tylenol 325mg tab] 2 tab PO Q4 PRN #30 tab 08/23/18 Levofloxacin [Levaquin] 750 mg PO DAILY #7 tablet 08/23/18 RX: Albuterol HFA [Ventolin HFA 90 1 puff IH Q4 PRN #1 inh 08/23/18 mcg/actuation (8 g)] Linagliptin/Metformin HCl 1 tab PO BID 08/24/18 [Jentadueto 2.5 mg-500 mg Tab] Promethazine HCl/Codeine 5 ml PO Q12 PRN 08/24/18 [Prometh-Codein 6.25-10 mg/5 ml] Rosuvastatin Calcium [Crestor] 20 mg PO HS 08/24/18 - Allergies Allergies/Adverse Reactions: Allergies Allergy/AdvReac Type Severity Reaction Status Date / Time No Known Allergies Allergy Verified 08/24/18 13:33 Review of Systems ROS Statement: Except As Marked, All Systems Reviewed And Found Negative Constitutional: Positive for: Fever. Negative for: Chills Cardiovascular: Negative for: Chest Pain Respiratory: Positive for: Cough (persistent). Negative for: Shortness of Breath Gastrointestinal: Negative for: Nausea, Vomiting Musculoskeletal: Positive for: Back Pain (right sided flank pain) Physical Exam - Reviewed Nursing Documentation Reviewed: Yes Vital Signs Reviewed: Yes - Physical Exam Appears: Positive for: Non-toxic, No Acute Distress (tired appearing) Head Exam: Positive for: ATRAUMATIC, NORMAL INSPECTION, NORMOCEPHALIC Skin: Positive for: Normal Color, Warm, Dry. Negative for: Rash Eye Exam: Positive for: EOMI, Normal appearance, PERRL ENT: Negative for: Pharyngeal Erythema, Tonsillar Exudate Neck: Positive for: Painless ROM, Supple Cardiovascular/Chest: Positive for: Regular Rate, Rhythm. Negative for: Murmur Respiratory: Positive for: Normal Breath Sounds. Negative for: Wheezing Gastrointestinal/Abdominal: Positive for: Soft, Tenderness (mild suprapubic tenderness to palpation). Negative for: Mass, Guarding, Rebound Back: Positive for: R CVA Tenderness Extremity: Positive for: Normal ROM. Negative for: Deformity Lymphatic: Negative for: Adenopathy Neurologic/Psych: Positive for: Alert. Negative for: Motor/Sensory Deficits - Laboratory Results Result Diagrams: 08/25/18 05:45 08/25/18 05:45 - ECG O2 Sat by Pulse Oximetry: 98 (RA) Pulse Ox Interpretation: Normal Medical Decision Making Medical Decision Makin:09 Impression: UTI with no improvement after outpatient therapy For hospitalization following ER workup with a diagnosis of pyelonephritis. Initial Plan: --Ct Abd & pelvis w contrast --EKG --CMP --lactic acid --CBC --CXR --NS IV 500 mls --Rocephin 1 gm in NS IV --Toradol 15 mg IVP --Tylenol 975 mg PO --Blood cx --Urine cx --Influenza AB --UA TOMAS Parnell [facility]. Scribe Attestation: Documented by Yjoana Ponce, acting as a scribe for Madelin Barrios MD Provider Scribe Attestation: All medical record entries made by the Scribe were at my direction and personally dictated by me. I have reviewed the chart and agree that the record accurately reflects my personal performance of the history, physical exam, medical decision making, and the department course for this patient. I have also personally directed, reviewed, and agree with the discharge instructions and disposition. Disposition - Clinical Impression Clinical Impression: Pyelonephritis Counseled Patient/Family Regarding: Studies Performed, Diagnosis - Disposition Disposition Time: 17:00 Condition: FAIR - Pt Status Changed To: Hospital Disposition Of: Observation - POA Present On Arrival: None
[2018-08-24] MEDS ORDERED: cefTRIAXone (Rocephin) 1 gm Inj ONE (16:10)
[2018-08-24 16:11] LABS: BASO # 0.1 K/uL (0.0-0.2); BASO % 0.6 % (0.0-2.0); EOS # 0.1 K/uL (0.0-0.7); EOS % 0.6 % (0.0-4.0); HEMOGLOBIN 10.7 g/dL (12.0-16.0); LYMPH # 1.6 K/uL (1.0-4.3); LYMPH % 13.3 % (20.0-40.0); MEAN CELL VOLUME 92.2 fl (81.0-99.0); MEAN CORPUSCULAR HEMOGLOBIN 30.4 pg (27.0-31.0); MEAN PLATELET VOLUME 10.2 fl (7.2-11.7); MONO # 1.3 K/uL (0.0-0.8); MONO % 11.3 % (0.0-10.0); NEUT # 8.9 K/uL (1.8-7.0); NEUT % 74.2 % (50.0-75.0); RBC 3.51 Mil/uL (3.80-5.20); RED CELL DISTRIBUTION WIDTH 13.2 % (11.5-14.5)
[2018-08-24 16:16] LABS: ALBUMIN 3.9 g/dL (3.5-5.0); ALT/SGPT 128 U/L (9-52); AST/SGOT 148 U/L (14-36); BLOOD UREA NITROGEN 16 mg/dl (7-17); CALCIUM 9.8 mg/dL (8.4-10.2); GFR NON-AFRICAN AMERICAN 54
[2018-08-24 16:17] LABS: SQUAMOUS EPITHIAL 1 /hpf (0-5); URINE BACTERIA RARE (<OCC); URINE BILIRUBIN NEGATIVE (NEGATIVE); URINE BLOOD NEGATIVE (NEGATIVE); URINE CLARITY CLEAR (Clear); URINE COLOR YELLOW (YELLOW); URINE GLUCOSE (UA) NEG (NEGATIVE); URINE PROTEIN NEGATIVE (NEGATIVE); URINE UROBILINOGEN 0.2-1.0 mg/dL (0.2-1.0)
[2018-08-24 16:22] LABS: URINE LEUKOCYTE ESTERASE TRACE Leu/uL (Negative)
--- NOTE | 2018-08-24 17:55 | RAD ---
Date of service: 08/24/2018 HISTORY: fever cough COMPARISON: August 23, 2018. TECHNIQUE: Chest PA and lateral FINDINGS: LUNGS: No active pulmonary disease. PLEURA: No significant pleural effusion identified. No pneumothorax apparent. CARDIOVASCULAR: No aortic atherosclerotic calcification present. Normal cardiac size. No pulmonary vascular congestion. OSSEOUS STRUCTURES: No significant abnormalities. VISUALIZED UPPER ABDOMEN: Normal. OTHER FINDINGS: None. IMPRESSION: No active disease. No significant interval change compared to the prior examination(s).
[2018-08-24] MEDS ORDERED: Albuterol-Ipratrop 3 mg / 0.5 (3 ml) UD INH PRN (22:43)
--- NOTE | 2018-08-24 23:05 | CP.PCM.HP ---
Past Patient History - Infectious Disease Hx of Infectious Diseases: None - Past Medical History & Family History Past Medical History?: Yes - Past Social History Smoking Status: Never Smoked - CARDIAC Hx Hypercholesterolemia: Yes Hx Hypertension: Yes - PULMONARY Hx Respiratory Disorders: No - NEUROLOGICAL Hx Transient Ischemic Attacks (TIA): Yes - HEENT Hx HEENT Problems: Yes Other/Comment: eyeglasses - RENAL Hx Chronic Kidney Disease: No - ENDOCRINE/METABOLIC Hx Hypothyroidism: Yes - HEMATOLOGICAL/ONCOLOGICAL Hx Human Immunodeficiency Virus (HIV): No - INTEGUMENTARY Hx Dermatological Problems: No - MUSCULOSKELETAL/RHEUMATOLOGICAL Hx Musculoskeletal Disorders: Yes Hx Back Pain: Yes - GASTROINTESTINAL Hx Gall Bladder Disease: Yes - GENITOURINARY/GYNECOLOGICAL Hx Genitourinary Disorders: No - PSYCHIATRIC Hx Psychophysiologic Disorder: No Hx Substance Use: No - SURGICAL HISTORY Hx Cholecystectomy: Yes - ANESTHESIA Hx Anesthesia: Yes Hx Anesthesia Reactions: No Hx Malignant Hyperthermia: No Meds Allergies/Adverse Reactions: Allergies Allergy/AdvReac Type Severity Reaction Status Date / Time No Known Allergies Allergy Verified 08/24/18 13:33 Results - Vital Signs Recent Vital Signs: Last Vital Signs Temp 98.2 F 08/24/18 21:17 Pulse 67 08/24/18 21:17 Resp 20 08/24/18 21:17 BP 121/67 08/24/18 21:17 Pulse Ox 97 08/24/18 21:17 - Labs Result Diagrams: 08/24/18 15:47 08/24/18 15:47 Labs: Laboratory Results - last 24 hr 08/24/18 08/24/18 08/24/18 15:44 15:44 15:47 WBC 12.0 H RBC 3.51 L Hgb 10.7 L Hct 32.4 L MCV 92.2 D MCH 30.4 MCHC 33.0 RDW 13.2 Plt Count 247 MPV 10.2 Neut % (Auto) 74.2 Lymph % (Auto) 13.3 L Lucas % (Auto) 11.3 H Eos % (Auto) 0.6 Baso % (Auto) 0.6 Neut # (Auto) 8.9 H Lymph # (Auto) 1.6 Lucas # (Auto) 1.3 H Eos # (Auto) 0.1 Baso # (Auto) 0.1 Sodium Potassium Chloride Carbon Dioxide Anion Gap BUN Creatinine Est GFR ( Amer) Est GFR (Non-Af Amer) POC Glucose (mg/dL) Random Glucose Lactic Acid Calcium Total Bilirubin AST ALT Alkaline Phosphatase Total Protein Albumin Globulin Albumin/Globulin Ratio Urine Color Yellow Urine Clarity Clear Urine pH 6.0 Ur Specific [place] 1.008 Urine Protein Negative Urine Glucose (UA) Neg Urine Ketones Negative Urine Blood Negative Urine Nitrate Negative Urine Bilirubin Negative Urine Urobilinogen 0.2-1.0 Ur Leukocyte Esterase Trace Urine RBC (Auto) 1 Urine Microscopic WBC 8 H Ur Squamous Epith Cells 1 Urine Bacteria Rare Influenza Typ A,B (EIA) Negative for flu a/b 08/24/18 08/24/18 08/24/18 15:47 15:50 15:56 WBC RBC Hgb Hct MCV MCH MCHC RDW Plt Count MPV Neut % (Auto) Lymph % (Auto) Lucas % (Auto) Eos % (Auto) Baso % (Auto) Neut # (Auto) Lymph # (Auto) Lucas # (Auto) Eos # (Auto) Baso # (Auto) Sodium 137 Potassium 4.4 Chloride 103 Carbon Dioxide 22 Anion Gap 16 BUN 16 Creatinine 1.0 Est GFR ( Amer) > 60 Est GFR (Non-Af Amer) 54 POC Glucose (mg/dL) 127 H Random Glucose 141 H Lactic Acid 1.3 Calcium 9.8 Total Bilirubin 0.5 AST 148 H D ALT 128 H D Alkaline Phosphatase 201 H D Total Protein 7.6 Albumin 3.9 Globulin 3.7 Albumin/Globulin Ratio 1.0 Urine Color Urine Clarity Urine pH Ur Specific [place] Urine Protein Urine Glucose (UA) Urine Ketones Urine Blood Urine Nitrate Urine Bilirubin Urine Urobilinogen Ur Leukocyte Esterase Urine RBC (Auto) Urine Microscopic WBC Ur Squamous Epith Cells Urine Bacteria Influenza Typ A,B (EIA) 08/24/18 21:39 WBC RBC Hgb Hct MCV MCH MCHC RDW Plt Count MPV Neut % (Auto) Lymph % (Auto) Lucas % (Auto) Eos % (Auto) Baso % (Auto) Neut # (Auto) Lymph # (Auto) Lucas # (Auto) Eos # (Auto) Baso # (Auto) Sodium Potassium Chloride Carbon Dioxide Anion Gap BUN Creatinine Est GFR ( Amer) Est GFR (Non-Af Amer) POC Glucose (mg/dL) 142 H Random Glucose Lactic Acid Calcium Total Bilirubin AST ALT Alkaline Phosphatase Total Protein Albumin Globulin Albumin/Globulin Ratio Urine Color Urine Clarity Urine pH Ur Specific [place] Urine Protein Urine Glucose (UA) Urine Ketones Urine Blood Urine Nitrate Urine Bilirubin Urine Urobilinogen Ur Leukocyte Esterase Urine RBC (Auto) Urine Microscopic WBC Ur Squamous Epith Cells Urine Bacteria Influenza Typ A,B (EIA) Assessment & Plan (1) Acute pyelonephritis Status: Acute (2) Acute bronchitis Status: Acute (3) Dehydration Status: Acute (4) Abnormal LFTs (liver function tests) Status: Acute (5) Anemia Status: Acute
[2018-08-25] MEDS: Sodium Chloride 0.9% 1,000 ML IV SCH ×3 (00:03→21:59)
[2018-08-25 00:50] LABS: IRON 39 ug/dL (37-170)
[2018-08-25 00:55] LABS: TOTAL IRON BINDING CAPACITY 227 ug/dL (250-450)
[2018-08-25 00:58] LABS: % IRON SATURATION 17 % (20-55)
[2018-08-25] MEDS: Levothyroxine 50 MCG TAB PO SCH (06:21)
[2018-08-25] MEDS: Promethazine DM 6.25 mg-15 mg/5 ml Syrup PO PRN (06:22)
--- NOTE | 2018-08-25 06:40 | CT ---
Date of service: 08/24/2018 PROCEDURE: CT Abdomen and Pelvis without intravenous contrast HISTORY: RIGHT flank pain UTI COMPARISON: 11/14/2016 TECHNIQUE: Technique. Contrast dose: Radiation dose: Total exam DLP = 777.43 mGy-cm. This CT exam was performed using one or more of the following dose reduction techniques: Automated exposure control, adjustment of the mA and/or kV according to patient size, and/or use of iterative reconstruction technique. FINDINGS: LOWER THORAX: Right basilar linear fibrosis. LIVER: Unremarkable. No gross lesion or ductal dilatation. GALLBLADDER AND BILE DUCTS: Cholecystectomy. Small hiatal hernia. PANCREAS: Unremarkable. No gross lesion or ductal dilatation. SPLEEN: Unremarkable. ADRENALS: Unremarkable. No mass. KIDNEYS AND URETERS: Unremarkable. No hydronephrosis. No solid mass. VASCULATURE: Unremarkable. No aortic aneurysm. No aortic atherosclerotic calcification or mural plaque present. BOWEL: Unremarkable. No obstruction. No gross mural thickening. APPENDIX: Unremarkable. Normal appendix. PERITONEUM: Unremarkable. No free fluid. No free air. LYMPH NODES: Unremarkable. No enlarged lymph nodes. BLADDER: Unremarkable. REPRODUCTIVE: Unremarkable. BONES: No acute fracture. OTHER FINDINGS: Umbilical hernia containing omental fat. IMPRESSION: Umbilical hernia and hiatal hernia. Cholecystectomy. No acute pathology.
[2018-08-25 06:45] LABS: BASO # 0.1 K/uL (0.0-0.2); BASO % 0.8 % (0.0-2.0); EOS # 0.2 K/uL (0.0-0.7); HEMOGLOBIN 9.9 g/dL (12.0-16.0); LYMPH # 1.2 K/uL (1.0-4.3); LYMPH % 13.8 % (20.0-40.0); MEAN CELL VOLUME 89.6 fl (81.0-99.0); MEAN CORPUSCULAR HGB CONC 33.5 g/dL (33.0-37.0); MEAN PLATELET VOLUME 10.1 fl (7.2-11.7); MONO # 1.2 K/uL (0.0-0.8); MONO % 13.2 % (0.0-10.0); NEUT # 6.2 K/uL (1.8-7.0); NEUT % 70.2 % (50.0-75.0); RBC 3.29 Mil/uL (3.80-5.20); RED CELL DISTRIBUTION WIDTH 13.3 % (11.5-14.5); WHITE BLOOD COUNT 8.8 K/uL (4.8-10.8)
[2018-08-25 07:04] LABS: ALBUMIN 3.3 g/dL (3.5-5.0); CALCIUM 9.1 mg/dL (8.4-10.2)
[2018-08-25] MEDS ORDERED: cefTRIAXone (Rocephin) 2 gm Inj IVPB SCH (09:00)
[2018-08-25] MEDS: Enoxaparin 40 mg Syringe SC SCH (09:37)
[2018-08-25] MEDS: Insulin Lispro (humaLOG) 100 Units/ml Inj SC SCH ×4 (09:38→23:46)
[2018-08-25] MEDS: cefTRIAXone 1 gm/NS 100ML IVPB SCH (09:38)
[2018-08-25] MEDS: Pantoprazole 40 mg EC Tab PO SCH (10:50)
--- NOTE | 2018-08-25 23:03 | CARD ---
APPROVED REPORT Date of service: 08/24/2018 EKG Measurement Heart [id number] <Conclusion> Normal sinus rhythm Normal ECG
[2018-08-26] MEDS: Levothyroxine 50 MCG TAB PO SCH (06:27)
[2018-08-26] MEDS: Insulin Lispro (humaLOG) 100 Units/ml Inj SC SCH ×4 (06:36→22:09)
[2018-08-26] MEDS: Pantoprazole 40 mg EC Tab PO SCH (09:28)
[2018-08-26] MEDS: Enoxaparin 40 mg Syringe SC SCH (09:30)
[2018-08-26] MEDS: cefTRIAXone 1 gm/NS 100ML IVPB SCH (11:03)
[2018-08-26] MEDS: Promethazine DM 6.25 mg-15 mg/5 ml Syrup PO PRN (16:22)
[2018-08-26 17:26] LABS: FOLATE 12.8 ng/mL
[2018-08-26] MEDS: Sodium Chloride 0.9% 1,000 ML IV SCH (18:42)
--- NOTE | 2018-08-26 21:08 | CP.PCM.PN ---
Subjective - Date & Time of Evaluation Date of Evaluation: 08/25/18 Time of Evaluation: 07:55 Objective - Vital Signs/Intake and Output Vital Signs (last 24 hours): Temp Pulse Resp BP Pulse Ox 97.8 F 77 20 146/79 96 08/26/18 17:00 08/26/18 17:00 08/26/18 17:00 08/26/18 17:00 08/26/18 17:00 - Medications Medications: Current Medications Acetaminophen (Tylenol 325mg Tab) 650 mg PO Q4 PRN PRN Reason: Fever >100.4 F Acetaminophen (Tylenol 325mg Tab) 650 mg PO Q6 PRN PRN Reason: Pain, moderate (4-7) Last Admin: 08/25/18 21:27 Dose: 650 mg Albuterol/Ipratropium (Duoneb 3 Mg/0.5 Mg (3 Ml) Ud) 3 ml INH RQ6 PRN PRN Reason: Shortness of Breath Aspirin (Ecotrin) 81 mg PO DAILY [facility] Last Admin: 08/26/18 10:04 Dose: 81 mg Enoxaparin Sodium (Lovenox) 40 mg SC DAILY [facility]; Protocol Last Admin: 08/26/18 09:30 Dose: 40 mg Ceftriaxone Sodium 1 gm/ (Sodium Chloride) 100 mls @ 100 mls/hr IVPB DAILY [facility] Last Admin: 08/26/18 11:03 Dose: 100 mls/hr Sodium Chloride (Sodium Chloride 0.9%) 1,000 mls @ 100 mls/hr IV .Q10H [facility] Stop: 08/27/18 17:56 Last Admin: 08/26/18 18:42 Dose: 100 mls/hr Insulin Human Lispro (Humalog) 0 units SC ACHS [facility]; Protocol Last Admin: 08/26/18 17:08 Dose: Not Given Levothyroxine Sodium (Synthroid) 50 mcg PO DAILY@0630 [facility] Last Admin: 08/26/18 06:27 Dose: 50 mcg Lisinopril (Zestril) 20 mg PO DAILY [facility] Last Admin: 08/26/18 09:29 Dose: 20 mg Metformin HCl (Glucophage) 500 mg PO BIDWM [facility] Last Admin: 08/26/18 17:14 Dose: 500 mg Pantoprazole Sodium (Protonix Ec Tab) 40 mg PO DAILY [facility] Last Admin: 08/26/18 09:28 Dose: 40 mg Promethazine HCl/Dextromethorphan (Phenergan Dm Syrup) 5 ml PO Q6 PRN PRN Reason: Cough Last Admin: 08/26/18 16:22 Dose: 5 ml Sitagliptin Phosphate (Januvia) 50 mg PO DAILY [facility] Last Admin: 08/26/18 09:28 Dose: 50 mg - Labs Labs: 08/25/18 05:45 08/25/18 05:45 Assessment and Plan (1) Acute pyelonephritis Status: Acute (2) Acute bronchitis Status: Acute (3) Dehydration Status: Acute (4) Abnormal LFTs (liver function tests) Status: Acute (5) Anemia Status: Acute
--- NOTE | 2018-08-26 21:09 | CP.PCM.PN ---
Subjective - Date & Time of Evaluation Date of Evaluation: 08/26/18 Time of Evaluation: 16:25 Objective - Vital Signs/Intake and Output Vital Signs (last 24 hours): Temp Pulse Resp BP Pulse Ox 97.8 F 77 20 146/79 96 08/26/18 17:00 08/26/18 17:00 08/26/18 17:00 08/26/18 17:00 08/26/18 17:00 - Medications Medications: Current Medications Acetaminophen (Tylenol 325mg Tab) 650 mg PO Q4 PRN PRN Reason: Fever >100.4 F Acetaminophen (Tylenol 325mg Tab) 650 mg PO Q6 PRN PRN Reason: Pain, moderate (4-7) Last Admin: 08/25/18 21:27 Dose: 650 mg Albuterol/Ipratropium (Duoneb 3 Mg/0.5 Mg (3 Ml) Ud) 3 ml INH RQ6 PRN PRN Reason: Shortness of Breath Aspirin (Ecotrin) 81 mg PO DAILY [facility] Last Admin: 08/26/18 10:04 Dose: 81 mg Enoxaparin Sodium (Lovenox) 40 mg SC DAILY [facility]; Protocol Last Admin: 08/26/18 09:30 Dose: 40 mg Ceftriaxone Sodium 1 gm/ (Sodium Chloride) 100 mls @ 100 mls/hr IVPB DAILY [facility] Last Admin: 08/26/18 11:03 Dose: 100 mls/hr Sodium Chloride (Sodium Chloride 0.9%) 1,000 mls @ 100 mls/hr IV .Q10H [facility] Stop: 08/27/18 17:56 Last Admin: 08/26/18 18:42 Dose: 100 mls/hr Insulin Human Lispro (Humalog) 0 units SC ACHS [facility]; Protocol Last Admin: 08/26/18 17:08 Dose: Not Given Levothyroxine Sodium (Synthroid) 50 mcg PO DAILY@0630 [facility] Last Admin: 08/26/18 06:27 Dose: 50 mcg Lisinopril (Zestril) 20 mg PO DAILY [facility] Last Admin: 08/26/18 09:29 Dose: 20 mg Metformin HCl (Glucophage) 500 mg PO BIDWM [facility] Last Admin: 08/26/18 17:14 Dose: 500 mg Pantoprazole Sodium (Protonix Ec Tab) 40 mg PO DAILY [facility] Last Admin: 08/26/18 09:28 Dose: 40 mg Promethazine HCl/Dextromethorphan (Phenergan Dm Syrup) 5 ml PO Q6 PRN PRN Reason: Cough Last Admin: 08/26/18 16:22 Dose: 5 ml Sitagliptin Phosphate (Januvia) 50 mg PO DAILY [facility] Last Admin: 08/26/18 09:28 Dose: 50 mg - Labs Labs: 08/25/18 05:45 08/25/18 05:45 Assessment and Plan (1) Acute pyelonephritis Status: Acute (2) Acute bronchitis Status: Acute (3) Dehydration Status: Acute (4) Abnormal LFTs (liver function tests) Status: Acute (5) Anemia Status: Acute
[2018-08-27 00:05] VITALS: O2SAT 97
[2018-08-27] MEDS: Sodium Chloride 0.9% 1,000 ML IV SCH (04:21)
[2018-08-27 06:28] LABS: BASO # 0.1 K/uL (0.0-0.2); BASO % 1.1 % (0.0-2.0); EOS # 0.3 K/uL (0.0-0.7); EOS % 2.7 % (0.0-4.0); LYMPH # 1.9 K/uL (1.0-4.3); LYMPH % 18.4 % (20.0-40.0); MEAN CELL VOLUME 89.6 fl (81.0-99.0); MEAN CORPUSCULAR HEMOGLOBIN 29.8 pg (27.0-31.0); MEAN CORPUSCULAR HGB CONC 33.3 g/dL (33.0-37.0); MEAN PLATELET VOLUME 9.6 fl (7.2-11.7); MONO # 1.3 K/uL (0.0-0.8); NEUT % 65.8 % (50.0-75.0); RBC 3.34 Mil/uL (3.80-5.20); WHITE BLOOD COUNT 10.6 K/uL (4.8-10.8)
[2018-08-27 06:41] LABS: CALCIUM 9.1 mg/dL (8.4-10.2)
[2018-08-27] MEDS: Levothyroxine 50 MCG TAB PO SCH (07:38)
[2018-08-27 08:38] VITALS: BP 106/58; PULSE 64; RESP 18; TEMP 97.7
[2018-08-27] MEDS: Insulin Lispro (humaLOG) 100 Units/ml Inj SC SCH ×2 (09:20→12:50)
[2018-08-27] MEDS: Enoxaparin 40 mg Syringe SC SCH (09:22)
[2018-08-27] MEDS: Pantoprazole 40 mg EC Tab PO SCH (09:23)
[2018-08-27] MEDS: cefTRIAXone 1 gm/NS 100ML IVPB SCH (09:25)
--- NOTE | 2018-08-28 02:18 | CP.PCM.DIS ---
Provider - Provider Date of Admission: 08/26/18 11:42 Attending physician: Kavita Jeffers MD Consults: 08/25/18 01:31 Social Work Referral Routine Comment: discharge planning Physician Instructions: Reason For Exam: discharge planning Time Spent in preparation of Discharge (in minutes): 25 Diagnosis - Discharge Diagnosis (1) Acute pyelonephritis Status: Acute Priority: High (2) Acute bronchitis Status: Acute Priority: High (3) Dehydration Status: Acute Priority: High (4) Abnormal LFTs (liver function tests) Status: Acute Priority: High (5) Anemia Status: Acute Priority: High Hospital Course - Lab Results Lab Results: Micro Results 08/24/18 15:40 Blood-Venous Blood Culture - Preliminary NO GROWTH AFTER 3 DAYS 08/24/18 15:44 Urine,Clean Catch Urine Culture - Final No Growth (<1,000 CFU/ML) Most Recent Lab Values WBC 10.6 K/uL (4.8-10.8) 08/27/18 05:40 RBC 3.34 Mil/uL (3.80-5.20) L 08/27/18 05:40 Hgb 10.0 g/dL (12.0-16.0) L 08/27/18 05:40 Hct 29.9 % (34.0-47.0) L 08/27/18 05:40 MCV 89.6 fl (81.0-99.0) 08/27/18 05:40 MCH 29.8 pg (27.0-31.0) 08/27/18 05:40 MCHC 33.3 g/dL (33.0-37.0) 08/27/18 05:40 RDW 13.0 % (11.5-14.5) 08/27/18 05:40 Plt Count 296 K/uL (130-400) 08/27/18 05:40 MPV 9.6 fl (7.2-11.7) 08/27/18 05:40 Neut % (Auto) 65.8 % (50.0-75.0) 08/27/18 05:40 Lymph % (Auto) 18.4 % (20.0-40.0) L 08/27/18 05:40 [place] % (Auto) 12.0 % (0.0-10.0) H 08/27/18 05:40 Eos % (Auto) 2.7 % (0.0-4.0) 08/27/18 05:40 Baso % (Auto) 1.1 % (0.0-2.0) 08/27/18 05:40 Neut # (Auto) 7.0 K/uL (1.8-7.0) 08/27/18 05:40 Lymph # (Auto) 1.9 K/uL (1.0-4.3) 08/27/18 05:40 [place] # (Auto) 1.3 K/uL (0.0-0.8) H 08/27/18 05:40 Eos # (Auto) 0.3 K/uL (0.0-0.7) 08/27/18 05:40 Baso # (Auto) 0.1 K/uL (0.0-0.2) 08/27/18 05:40 Retic Count 1.2 % (0.5-1.5) 08/25/18 00:25 Sodium 143 mmol/l (132-148) 08/27/18 05:40 Potassium 4.4 MMOL/L (3.6-5.0) 08/27/18 05:40 Chloride 107 mmol/L (98-107) 08/27/18 05:40 Carbon Dioxide 27 mmol/L (22-30) 08/27/18 05:40 Anion Gap 13 (10-20) 08/27/18 05:40 BUN 20 mg/dl (7-17) H 08/27/18 05:40 Creatinine 1.1 mg/dl (0.7-1.2) 08/27/18 05:40 Est GFR ( Amer) 59 08/27/18 05:40 Est GFR (Non-Af Amer) 49 08/27/18 05:40 POC Glucose (mg/dL) 168 mg/dL (65-110) H 08/27/18 10:40 Random Glucose 141 mg/dL (65-105) H 08/27/18 05:40 Lactic Acid 1.3 MMOL/L (0.7-2.1) 08/24/18 15:50 Calcium 9.1 mg/dL (8.4-10.2) 08/27/18 05:40 Phosphorus 4.0 mg/dl (2.5-4.5) 08/25/18 05:45 Magnesium 1.5 MG/DL (1.6-2.3) L 08/25/18 05:45 Iron 39 ug/dL (37-170) 08/25/18 00:25 TIBC 227 ug/dL (250-450) L 08/25/18 00:25 % Saturation 17 % (20-55) L 08/25/18 00:25 Ferritin 288.0 ng/Ml (11.1-264.0) H 08/25/18 00:25 Total Bilirubin 0.2 mg/dl (0.2-1.3) 08/25/18 05:45 AST 119 U/L (14-36) H 08/25/18 05:45 ALT 125 U/L (9-52) H 08/25/18 05:45 Alkaline Phosphatase 197 U/L (38-126) H 08/25/18 05:45 Total Protein 6.6 G/DL (6.3-8.2) 08/25/18 05:45 Albumin 3.3 g/dL (3.5-5.0) L 08/25/18 05:45 Globulin 3.3 gm/dL (2.2-3.9) 08/25/18 05:45 Albumin/Globulin Ratio 1.0 (1.0-2.1) 08/25/18 05:45 Vitamin B12 521 pg/mL (239-931) 08/25/18 00:25 Folate 12.8 ng/mL 08/25/18 00:25 Urine Color Yellow (YELLOW) 08/24/18 15:44 Urine Clarity Clear (Clear) 08/24/18 15:44 Urine pH 6.0 (5.0-8.0) 08/24/18 15:44 Ur Specific [place] 1.008 (1.003-1.030) 08/24/18 15:44 Urine Protein Negative mg/dL (NEGATIVE) 08/24/18 15:44 Urine Glucose (UA) Neg mg/dL (NEGATIVE) 08/24/18 15:44 Urine Ketones Negative mg/dL (NEGATIVE) 08/24/18 15:44 Urine Blood Negative (NEGATIVE) 08/24/18 15:44 Urine Nitrate Negative (NEGATIVE) 08/24/18 15:44 Urine Bilirubin Negative (NEGATIVE) 08/24/18 15:44 Urine Urobilinogen 0.2-1.0 mg/dL (0.2-1.0) 08/24/18 15:44 Ur Leukocyte Esterase Trace Dev/uL (Negative) 08/24/18 15:44 Urine RBC (Auto) 1 /hpf (0-3) 08/24/18 15:44 Urine Microscopic WBC 8 /hpf (0-5) H 08/24/18 15:44 Ur Squamous Epith Cells 1 /hpf (0-5) 08/24/18 15:44 Urine Bacteria Rare (<OCC) 08/24/18 15:44 Stool Occult Blood Negative (NEGATIVE) 08/24/18 18:00 Influenza Typ A,B (EIA) Negative for flu a/b (NEGATIVE) 08/24/18 15:44 Discharge Exam - Head Exam Head Exam: ATRAUMATIC, NORMAL INSPECTION, NORMOCEPHALIC Discharge Plan - Discharge Medications Prescriptions: Cephalexin [Keflex] 500 mg PO TID #30 capsule - Follow Up Plan Condition: FAIR Disposition: HOME/ ROUTINE Instructions: Urinary Tract Infection, Adult (DC) Additional Instructions: follow up with primary MD 1 week Referrals: Shilpa Fabian MD [Family Provider] -
--- NOTE | 2018-08-28 02:57 | PQF ---
PROVIDER RESPONSE TEXT: Anemia of Chronic Disease REVIEWER QUERY TEXT: Anemia Type Acute Anemia is documented in the Medical Record. Please specify the cause (includes suspected or pr obable cause) Such as: if known -- Due to acute blood loss -- Due to chronic blood loss -- Due to iron deficiency -- Due to postoperative blood loss -- Due to chronic disease -- Other, please specify H/H: 10.7/32.4->.9.9/29.4->10.0/29.9 H and P: dxs. include: Anemia:Acute The patient's Clinical Indicators include: -- Query created by: Kristin Martines on 08/27/2018 2:51 PM Electronically signed by: Kavita Jeffers MD 08/28/2018 2:53 AM
== END 2018-08-27 13:34 | disposition home or self-care (01) | DRG 690 ==
LOC: H.ER 13:07 → H.ERHOLD 18:55 → H.MEDSURG1 20:57 → OBSVTOIN 08-26 11:42
PROVIDERS: ADMIT Internal Medicine; ATTEND Internal Medicine
DX: N10 Acute pyelonephritis (principal); E86.0 Dehydration; J20.9 Acute bronchitis, unspecified; E11.9 Type 2 diabetes mellitus without complications; E03.9 Hypothyroidism, unspecified; E78.00 Pure hypercholesterolemia, unspecified; I10 Essential (primary) hypertension; Z86.73 Personal history of transient ischemic attack (TIA), and cerebral infarction without residual deficits; R94.5 Abnormal results of liver function studies; D63.8 Anemia in other chronic diseases classified elsewhere; K29.70 Gastritis, unspecified, without bleeding; K21.9 Gastro-esophageal reflux disease without esophagitis; Z79.82 Long term (current) use of aspirin

== ENCOUNTER 2018-09-12 18:07 | Observation (INO) | payer MEDICARE, MEDICAID ==
--- NOTE | 2018-09-12 19:49 | ED PDOC ---
HPI: Chest Pain Time Seen by Provider: 09/12/18 18:24 Chief Complaint (Nursing): Chest Pain Chief Complaint (Provider): Chest Pain History Per: Patient History/Exam Limitations: no limitations Onset/Duration Of Symptoms: Days (x 1) Current Symptoms Are (Timing): Still Present Quality: "Pain" Additional Complaint(s): 73 year old female with a history of HTN and DM presents to the ED via EMS with chest pain and left sided neck pain beginning today. Patient also reports left arm numbness and tingling for the last few days. Patient was given nitro and aspirin in the field. States she now has a mild headache. Otherwise, chest pain is improved. She is unsure about what medications she takes at home. Denies weakness, dizziness and syncope. PMD: none provided Past Medical History Reviewed: Historical Data, Nursing Documentation, Vital Signs Vital Signs: Last Vital Signs Temp 98.6 F 09/12/18 18:13 Pulse 80 09/12/18 18:18 Resp 14 09/12/18 18:13 BP 132/76 09/12/18 18:18 Pulse Ox 94 L 09/12/18 18:13 - Medical History PMH: Diabetes, Gall Bladder Disease, GERD, HTN, Hypercholesterolemia, Hypothyroidism, TIA Denies: HIV, Chronic Kidney Disease - Surgical History Surgical History: Cholecystectomy - Family History Family History: States: Unknown Family Hx, Diabetes, Hypertension - Home Medications Home Medications: Ambulatory Orders Medication Instructions Recorded RX: Levothyroxine [Synthroid] 50 mcg PO DAILY 05/16/15 RX: Lisinopril 20 mg PO DAILY 05/16/15 RX: Omeprazole [Prilosec] 40 mg PO DAILY 05/16/15 RX: Aspirin [Aspirin EC] 81 mg PO DAILY #0 ect 05/17/15 RX: Tad-3 Fatty Acids/Fish Oil 1 gm PO DAILY 11/13/15 [Fish Oil 1,000 mg Capsule] RX: Acetaminophen [Tylenol 325mg 2 tab PO Q4 PRN #30 tab 08/23/18 tab] RX: Albuterol HFA [Ventolin HFA 90 1 puff IH Q4 PRN #1 inh 08/23/18 mcg/actuation (8 g)] RX: Linagliptin/Metformin HCl 1 tab PO BID 08/24/18 [Jentadueto 2.5 mg-500 mg Tab] RX: Rosuvastatin Calcium [Crestor] 20 mg PO HS 08/24/18 - Allergies Allergies/Adverse Reactions: Allergies Allergy/AdvReac Type Severity Reaction Status Date / Time No Known Allergies Allergy Verified 09/12/18 18:16 Review of Systems ROS Statement: Except As Marked, All Systems Reviewed And Found Negative Constitutional: Negative for: Fever, Weakness Cardiovascular: Positive for: Chest Pain (improved after nitro and aspirin in the field) Musculoskeletal: Positive for: Neck Pain (left sided\\) Neurological: Positive for: Numbness (and tingling in left arm), Headache (mild). Negative for: Weakness, Dizziness Physical Exam - Reviewed Nursing Documentation Reviewed: Yes Vital Signs Reviewed: Yes - Physical Exam Appears: Positive for: Non-toxic, No Acute Distress Head Exam: Positive for: ATRAUMATIC, NORMAL INSPECTION, NORMOCEPHALIC Skin: Positive for: Normal Color, Warm, Dry Eye Exam: Positive for: EOMI, Normal appearance, PERRL Neck: Positive for: Normal, Painless ROM, Supple Cardiovascular/Chest: Positive for: Regular Rate, Rhythm. Negative for: Murmur Respiratory: Positive for: Normal Breath Sounds. Negative for: Wheezing, Respiratory Distress Gastrointestinal/Abdominal: Positive for: Normal Exam, Soft. Negative for: Tenderness Back: Positive for: Normal Inspection. Negative for: L CVA Tenderness, R CVA Tenderness Extremity: Positive for: Normal ROM (Full ROM at all extremities). Negative for: Deformity Neurologic/Psych: Positive for: Alert, re recording mixer II-XII (intact), Oriented (x 3). Negative for: Motor/Sensory Deficits - Laboratory Results Result Diagrams: 09/13/18 06:40 09/13/18 06:40 - ECG ECG: Positive for: Interpreted By Me, Viewed By Me ECG Rhythm: Positive for: Sinus Rhythm (normal) Rate: 86 O2 Sat by Pulse Oximetry: 94 Medical Decision Making Medical Decision Makin:59 MDM: Workup for chest pain onset today and several days of left arm pain and tingling Tylenol for headache most likely induced by nitro Labs, CXR Patient will be signed out to Dr. Cadena pending results and reeval. Scribe Attestation: Documented by Yojana Ponce acting as a scribe for Ligia Mercedes MD Provider Scribe Attestation: All medical record entries made by the Scribe were at my direction and personally dictated by me. I have reviewed the chart and agree that the record a ccurately reflects my personal performance of the history, physical exam, medical decision making, and the department course for this patient. I have also personally directed, reviewed, and agree with the discharge instructions and disposition. Disposition - Clinical Impression Clinical Impression: Chest pain - Patient ED Disposition Is Patient to be Admitted: Transfer of Care - Disposition Disposition: Transfer of Care Disposition Time: 19:00 Condition: FAIR Patient Signed Over To: Yeison Cadena
[2018-09-12 19:53] LABS: BASO # 0.1 K/uL (0.0-0.2); BASO % 1.1 % (0.0-2.0); EOS # 0.2 K/uL (0.0-0.7); EOS % 2.7 % (0.0-4.0); LYMPH # 2.1 K/uL (1.0-4.3); MEAN CELL VOLUME 90.5 fl (81.0-99.0); MEAN CORPUSCULAR HGB CONC 33.1 g/dL (33.0-37.0); MEAN PLATELET VOLUME 10.6 fl (7.2-11.7); MONO # 0.7 K/uL (0.0-0.8); MONO % 8.5 % (0.0-10.0); NEUT # 4.9 K/uL (1.8-7.0); NEUT % 61.7 % (50.0-75.0); RBC 3.65 Mil/uL (3.80-5.20)
[2018-09-12 20:04] LABS: ALB/GLOB RATIO 1.2 (1.0-2.1); ALBUMIN 4.3 g/dL (3.5-5.0); ALT/SGPT 30 U/L (9-52); AST/SGOT 23 U/L (14-36); BLOOD UREA NITROGEN 17 mg/dl (7-17); CALCIUM 10.5 mg/dL (8.4-10.2); GFR NON-AFRICAN AMERICAN > 60
[2018-09-12 20:09] LABS: B-TYPE NATRIURETIC PEPTIDE 81.2 pg/ml (0-900)
--- NOTE | 2018-09-12 20:38 | ED PDOC ---
- Laboratory Results Result Diagrams: 09/12/18 19:39 09/12/18 19:39 Lab Results: NT-Pro-B Natriuret Pep 81.2 pg/ml (0-900) 09/12/18 19:39 Total Bilirubin 0.2 mg/dl (0.2-1.3) 09/12/18 19:39 AST 23 U/L (14-36) 09/12/18 19:39 ALT 30 U/L (9-52) 09/12/18 19:39 Alkaline Phosphatase 126 U/L (38-126) D 09/12/18 19:39 Total Protein 8.0 G/DL (6.3-8.2) 09/12/18 19:39 Albumin 4.3 g/dL (3.5-5.0) 09/12/18 19:39 Globulin 3.7 gm/dL (2.2-3.9) 09/12/18 19:39 Albumin/Globulin Ratio 1.2 (1.0-2.1) 09/12/18 19:39 - ECG ECG: Positive for: Interpreted By Me, Viewed By Me ECG Rhythm: Positive for: Normal QRS, Normal ST Segment, Sinus Rhythm O2 Sat by Pulse Oximetry: 94 - Radiology X-Ray: Interpreted by Me, Viewed By Me X-Ray Interpretation: No Acute Disease - CT Scan/US ct Other Rad Studies (CT/US): Read By Radiologist Other Rad Interpretation: no acute - Progress ED Course And Treament: 2057: Stable. AAOx3. Pain free. Dr. Stokes to admit. Disposition - Clinical Impression Clinical Impression: Chest pain - POA Present On Arrival: None - Disposition Disposition: Hospitalized as Observation Patient Disposition Time: 20:59 Condition: FAIR
[2018-09-12] MEDS ORDERED: Albuterol HFA 90 mcg/actuation (8 g) IH PRN (21:59)
[2018-09-12 22:10] LABS: VENOUS BLOOD GAS BASE EXCESS 3.8 mmol/L (0.0-2.0); VENOUS BLOOD GAS PCO2 46 mmHg (40-60); VENOUS BLOOD GAS PO2 21 mm/Hg (30-55); VENOUS BLOOD PH 7.41 (7.32-7.43)
[2018-09-13] MEDS ORDERED: Levothyroxine 50 MCG TAB PO SCH (06:30)
[2018-09-13 07:04] LABS: BASO # 0.2 K/uL (0.0-0.2); BASO % 1.9 % (0.0-2.0); EOS # 0.2 K/uL (0.0-0.7); EOS % 3.1 % (0.0-4.0); HEMOGLOBIN 10.7 g/dL (12.0-16.0); LYMPH # 2.9 K/uL (1.0-4.3); LYMPH % 37.1 % (20.0-40.0); MEAN CELL VOLUME 91.1 fl (81.0-99.0); MEAN CORPUSCULAR HEMOGLOBIN 29.6 pg (27.0-31.0); MEAN CORPUSCULAR HGB CONC 32.6 g/dL (33.0-37.0); MEAN PLATELET VOLUME 9.9 fl (7.2-11.7); MONO # 0.7 K/uL (0.0-0.8); MONO % 9.2 % (0.0-10.0); NEUT # 3.9 K/uL (1.8-7.0); NEUT % 48.7 % (50.0-75.0); NRBC % 0.1 % (0.0-0.0); RBC 3.6 Mil/uL (3.80-5.20); RED CELL DISTRIBUTION WIDTH 14.2 % (11.5-14.5); WHITE BLOOD COUNT 7.9 K/uL (4.8-10.8)
[2018-09-13 07:13] LABS: ALB/GLOB RATIO 1.1 (1.0-2.1); ALT/SGPT 25 U/L (9-52); AST/SGOT 23 U/L (14-36); BLOOD UREA NITROGEN 14 mg/dl (7-17); GFR NON-AFRICAN AMERICAN > 60
[2018-09-13 07:27] LABS: T3 UPTAKE 31.3 % (23.0-41.0); T4 8.88 ug/dl (5.5-11.0)
[2018-09-13 07:41] LABS: T3 1.09 nmol/L (1.49-2.60)
[2018-09-13 08:11] VITALS: RESP 17; TEMP 98.5
[2018-09-13 08:34] VITALS: BP 146/80
--- NOTE | 2018-09-13 08:45 | CP.PCM.CON ---
History of Present Illness - History of Present Illness History of Present Illness: this 73-year-old female came to the emergency room having developed chest discomfort along with left-sided neck pain yesterday and reports some degree of relief after nitroglycerin was given in the field. The chest discomfort continued in the emergency room and has eventually resolved few hours back. She has a long history of hypertension and diabetes and has had numerous visits to the hospital dating back to 2012. Multiple electrocardiograms were arrival able going back to 2013. The patient has never suffered a prior myocardial infarction or a history of congestive cardiac failure. She has never been a smoker. She had a recent visit to the emergency room for pyelonephritis. Patient reports being active and can walk 4-5 blocks without experiencing any chest pain or symptoms of congestive cardiac failure. There is no significant family history. the patient indicates that she has taken her medications regularly. Physical examination shows an elderly female who is alert awake coherent afebrile and quite free of any discomfort. There is no tenderness in the precordial area. Deep inspiration does not precipitate any discomfort. Her heart rate was 70 bpm regular and her blood pressure was 144/74 mmHg. Her jugular venous pressure was not elevated and there was no edema over her lower extremity. Pedal pulses are well felt and there was no carotid bruit. Thyroid and breast did not reveal anything abnormal. The apex was vaguely felt in the fifth space the first and second heart sounds were normal. There was a brief ejection systolic murmur in the aortic area the second heart sound was well preserved. There were no rales. Abdomen was soft liver and spleen are not palpable. Her electro-cardiogram showed sinus rhythm with a normal EKG pattern and identical pattern was seen on electrocardiograms as far back as 2013. troponin levels 2 were normal. Rest of her labs were noted. Impression: chest pain with no evidence of acute coronary syndrome. The patient may be allowed to return home to follow-up with her own physician and undergo additional test to rule out the possibility of underlying coronary artery disease. The patient has been instructed to keep taking a coated aspirin every day. Past Patient History - Infectious Disease Hx of Infectious Diseases: None - Past Medical History & Family History Past Medical History?: Yes - Past Social History Smoking Status: Never Smoked - CARDIAC Hx Hypercholesterolemia: Yes Hx Hypertension: Yes - PULMONARY Hx Respiratory Disorders: No - NEUROLOGICAL Hx Transient Ischemic Attacks (TIA): Yes - HEENT Hx HEENT Problems: Yes Other/Comment: eyeglasses - RENAL Hx Chronic Kidney Disease: No - ENDOCRINE/METABOLIC Hx Hypothyroidism: Yes - HEMATOLOGICAL/ONCOLOGICAL Hx Human Immunodeficiency Virus (HIV): No - INTEGUMENTARY Hx Dermatological Problems: No - MUSCULOSKELETAL/RHEUMATOLOGICAL Hx Musculoskeletal Disorders: Yes Hx Back Pain: Yes - GASTROINTESTINAL Hx Gall Bladder Disease: Yes - GENITOURINARY/GYNECOLOGICAL Hx Genitourinary Disorders: No - PSYCHIATRIC Hx Psychophysiologic Disorder: No Hx Substance Use: No - SURGICAL HISTORY Hx Cholecystectomy: Yes - ANESTHESIA Hx Anesthesia: Yes Hx Anesthesia Reactions: No Hx Malignant Hyperthermia: No Meds Allergies/Adverse Reactions: Allergies Allergy/AdvReac Type Severity Reaction Status Date / Time No Known Allergies Allergy Verified 09/12/18 18:16 - Medications Medications: Current Medications Acetaminophen (Tylenol 325mg Tab) 650 mg PO Q4 PRN PRN Reason: Fever >100.4 F Albuterol (Ventolin Hfa 90 Mcg/Actuation (8 G)) 1 puff IH Q4 PRN PRN Reason: Wheezing Aspirin (Ecotrin) 81 mg PO DAILY [facility] Last Admin: 09/13/18 08:31 Dose: 81 mg Atorvastatin Calcium (Lipitor) 40 mg PO DAILY [facility] Last Admin: 09/13/18 08:32 Dose: 40 mg Levothyroxine Sodium (Synthroid) 50 mcg PO DAILY@0630 [facility] Last Admin: 09/13/18 08:31 Dose: 50 mcg Lisinopril (Zestril) 20 mg PO DAILY [facility] Last Admin: 09/13/18 08:32 Dose: 20 mg Metformin HCl (Glucophage) 500 mg PO BIDWM [facility] Last Admin: 09/13/18 08:31 Dose: 500 mg Pantoprazole Sodium (Protonix Ec Tab) 40 mg PO DAILY [facility] Last Admin: 09/13/18 08:32 Dose: 40 mg Results - Vital Signs Recent Vital Signs: Last Vital Signs Temp 98.5 F 09/13/18 08:09 Pulse 79 09/13/18 08:32 Resp 17 09/13/18 08:09 BP 146/80 09/13/18 08:32 Pulse Ox 97 09/13/18 08:09 - Labs Result Diagrams: 09/13/18 06:40 09/13/18 06:40 Labs: Laboratory Results - last 24 hr 09/12/18 09/12/18 09/12/18 18:38 19:39 19:39 WBC 8.0 RBC 3.65 L Hgb 11.0 L Hct 33.1 L MCV 90.5 MCH 30.0 MCHC 33.1 RDW 14.0 Plt Count 303 MPV 10.6 Neut % (Auto) 61.7 Lymph % (Auto) 26.0 Knott % (Auto) 8.5 Eos % (Auto) 2.7 Baso % (Auto) 1.1 Neut # (Auto) 4.9 Lymph # (Auto) 2.1 Knott # (Auto) 0.7 Eos # (Auto) 0.2 Baso # (Auto) 0.1 pO2 VBG pH VBG pCO2 VBG HCO3 VBG Total CO2 VBG O2 Sat (Calc) VBG Base Excess VBG Potassium Glucose Lactate FiO2 Sodium 139 Potassium 4.4 Chloride 103 Carbon Dioxide 26 Anion Gap 14 BUN 17 Creatinine 0.8 Est GFR ( Amer) > 60 Est GFR (Non-Af Amer) > 60 POC Glucose (mg/dL) 207 H Random Glucose 182 H Calcium 10.5 H Total Bilirubin 0.2 AST 23 ALT 30 Alkaline Phosphatase 126 D Troponin I < 0.0120 NT-Pro-B Natriuret Pep 81.2 Total Protein 8.0 Albumin 4.3 Globulin 3.7 Albumin/Globulin Ratio 1.2 Thyroxine (T4) Total T3 T3 Uptake TSH 3rd Generation Venous Blood Potassium Blood Type Blood Type Confirm Antibody Screen BBK History Checked 09/12/18 09/12/18 09/13/18 20:36 22:07 03:30 WBC RBC Hgb Hct MCV MCH MCHC RDW Plt Count MPV Neut % (Auto) Lymph % (Auto) Knott % (Auto) Eos % (Auto) Baso % (Auto) Neut # (Auto) Lymph # (Auto) Knott # (Auto) Eos # (Auto) Baso # (Auto) pO2 21 L VBG pH 7.41 VBG pCO2 46 VBG HCO3 26.2 VBG Total CO2 30.6 H VBG O2 Sat (Calc) 33.8 L VBG Base Excess 3.8 H VBG Potassium 4.7 Glucose 150 H Lactate 1.3 FiO2 21.0 Sodium 139.0 Potassium Chloride 106.0 Carbon Dioxide Anion Gap BUN Creatinine Est GFR ( Amer) Est GFR (Non-Af Amer) POC Glucose (mg/dL) Random Glucose Calcium Total Bilirubin AST ALT Alkaline Phosphatase Troponin I < 0.0120 NT-Pro-B Natriuret Pep Total Protein Albumin Globulin Albumin/Globulin Ratio Thyroxine (T4) Total T3 T3 Uptake TSH 3rd Generation Venous Blood Potassium 4.7 Blood Type O POSITIVE Blood Type Confirm Antibody Screen Negative BBK History Checked No verified bt 09/13/18 09/13/18 09/13/18 06:40 06:40 06:40 WBC 7.9 RBC 3.60 L Hgb 10.7 L Hct 32.8 L MCV 91.1 MCH 29.6 MCHC 32.6 L RDW 14.2 Plt Count 291 MPV 9.9 Neut % (Auto) 48.7 L Lymph % (Auto) 37.1 Knott % (Auto) 9.2 Eos % (Auto) 3.1 Baso % (Auto) 1.9 Neut # (Auto) 3.9 Lymph # (Auto) 2.9 Knott # (Auto) 0.7 Eos # (Auto) 0.2 Baso # (Auto) 0.2 pO2 VBG pH VBG pCO2 VBG HCO3 VBG Total CO2 VBG O2 Sat (Calc) VBG Base Excess VBG Potassium Glucose Lactate FiO2 Sodium 141 Potassium 4.3 Chloride 107 Carbon Dioxide 25 Anion Gap 13 BUN 14 Creatinine 0.8 Est GFR ( Amer) > 60 Est GFR (Non-Af Amer) > 60 POC Glucose (mg/dL) Random Glucose 130 H Calcium 10.0 Total Bilirubin 0.2 AST 23 ALT 25 Alkaline Phosphatase 110 Troponin I NT-Pro-B Natriuret Pep Total Protein 7.5 Albumin 4.0 Globulin 3.5 Albumin/Globulin Ratio 1.1 Thyroxine (T4) 8.88 Total T3 1.09 L T3 Uptake 31.3 TSH 3rd Generation 1.71 Venous Blood Potassium Blood Type Blood Type Confirm O POSITIVE Antibody Screen BBK History Checked
--- NOTE | 2018-09-13 08:47 | CP.PCM.HP ---
<Christelle Elmore - Last Filed: 09/13/18 08:48> History of Present Illness - History of Present Illness History of Present Illness: HPI: 73 YO female with PMHx of HTN, gastritis, DM, TIA and hypothyroidism presented to [facility] ED for chest pain. Pt states that the pain is located in the center of her chest, described as pressure like in nature, started when patient was cooking yesterday. There was no radiation of the pain, but was associated with dizziness and "feeling sick." EMS was called and pt was given a medicine which helped the pain get better. Pt is not endorsing any pain currently. No chest pain with walking or activity at baseline. PMHx: HTN, gastritis, DM, TIA and hypothyroidism SurGhx: cholecystectomy SHx: occasional wine, denies smoking and illicit drug use FHx: HTN Allergies: NKDA Present on Admission - Present on Admission Any Indicators Present on Admission: No Review of Systems - Constitutional Constitutional: absent: Chills, Fever - Cardiovascular Cardiovascular: Chest Pain. absent: Dyspnea, Palpitations - Respiratory Respiratory: absent: Cough, Dyspnea - Gastrointestinal Gastrointestinal: absent: Abdominal Pain Past Patient History - Infectious Disease Hx of Infectious Diseases: None - Past Medical History & Family History Past Medical History?: Yes - Past Social History Smoking Status: Never Smoked Alcohol: Social Drugs: Denies Home Situation {Lives}: With Family - CARDIAC Hx Hypercholesterolemia: Yes Hx Hypertension: Yes - PULMONARY Hx Respiratory Disorders: No - NEUROLOGICAL Hx Transient Ischemic Attacks (TIA): Yes - HEENT Hx HEENT Problems: Yes Other/Comment: eyeglasses - RENAL Hx Chronic Kidney Disease: No - ENDOCRINE/METABOLIC Hx Hypothyroidism: Yes - HEMATOLOGICAL/ONCOLOGICAL Hx Human Immunodeficiency Virus (HIV): No - INTEGUMENTARY Hx Dermatological Problems: No - MUSCULOSKELETAL/RHEUMATOLOGICAL Hx Musculoskeletal Disorders: Yes Hx Back Pain: Yes - GASTROINTESTINAL Hx Gall Bladder Disease: Yes - GENITOURINARY/GYNECOLOGICAL Hx Genitourinary Disorders: No - PSYCHIATRIC Hx Psychophysiologic Disorder: No Hx Substance Use: No - SURGICAL HISTORY Hx Cholecystectomy: Yes - ANESTHESIA Hx Anesthesia: Yes Hx Anesthesia Reactions: No Hx Malignant Hyperthermia: No Meds Home Medications: Home Medication List Medication Instructions Recorded Confirmed Type RX: Atorvastatin [Lipitor] 40 mg PO DAILY tab 09/13/18 Rx RX: metFORMIN [glucOPHAGE] 500 mg PO BIDWM tab 09/13/18 Rx Allergies/Adverse Reactions: Allergies Allergy/AdvReac Type Severity Reaction Status Date / Time No Known Allergies Allergy Verified 09/12/18 18:16 Physical Exam - Constitutional Appears: No Acute Distress - Head Exam Head Exam: NORMAL INSPECTION - Eye Exam Eye Exam: EOMI, Normal appearance - ENT Exam ENT Exam: Mucous Membranes Moist - Respiratory Exam Respiratory Exam: Clear to Auscultation Bilateral, NORMAL BREATHING PATTERN. absent: Wheezes - Cardiovascular Exam Cardiovascular Exam: REGULAR RHYTHM, +S1, +S2 - GI/Abdominal Exam GI & Abdominal Exam: Normal Bowel Sounds, Soft. absent: Tenderness - Extremities Exam Extremities exam: Positive for: normal inspection - Neurological Exam Neurological exam: Alert, Oriented x3 - Psychiatric Exam Psychiatric exam: Normal Mood Results - Vital Signs Recent Vital Signs: Last Vital Signs Temp 98.5 F 09/13/18 08:09 Pulse 79 09/13/18 08:32 Resp 17 09/13/18 08:09 BP 146/80 09/13/18 08:32 Pulse Ox 97 09/13/18 08:09 - Labs Result Diagrams: 09/13/18 06:40 09/13/18 06:40 Labs: Laboratory Results - last 24 hr 09/12/18 09/12/18 09/12/18 18:38 19:39 19:39 WBC 8.0 RBC 3.65 L Hgb 11.0 L Hct 33.1 L MCV 90.5 MCH 30.0 MCHC 33.1 RDW 14.0 Plt Count 303 MPV 10.6 Neut % (Auto) 61.7 Lymph % (Auto) 26.0 Boyd % (Auto) 8.5 Eos % (Auto) 2.7 Baso % (Auto) 1.1 Neut # (Auto) 4.9 Lymph # (Auto) 2.1 Boyd # (Auto) 0.7 Eos # (Auto) 0.2 Baso # (Auto) 0.1 pO2 VBG pH VBG pCO2 VBG HCO3 VBG Total CO2 VBG O2 Sat (Calc) VBG Base Excess VBG Potassium Glucose Lactate FiO2 Sodium 139 Potassium 4.4 Chloride 103 Carbon Dioxide 26 Anion Gap 14 BUN 17 Creatinine 0.8 Est GFR ( Amer) > 60 Est GFR (Non-Af Amer) > 60 POC Glucose (mg/dL) 207 H Random Glucose 182 H Calcium 10.5 H Total Bilirubin 0.2 AST 23 ALT 30 Alkaline Phosphatase 126 D Troponin I < 0.0120 NT-Pro-B Natriuret Pep 81.2 Total Protein 8.0 Albumin 4.3 Globulin 3.7 Albumin/Globulin Ratio 1.2 Thyroxine (T4) Total T3 T3 Uptake TSH 3rd Generation Venous Blood Potassium Blood Type Blood Type Confirm Antibody Screen BBK History Checked 09/12/18 09/12/18 09/13/18 20:36 22:07 03:30 WBC RBC Hgb Hct MCV MCH MCHC RDW Plt Count MPV Neut % (Auto) Lymph % (Auto) Boyd % (Auto) Eos % (Auto) Baso % (Auto) Neut # (Auto) Lymph # (Auto) Boyd # (Auto) Eos # (Auto) Baso # (Auto) pO2 21 L VBG pH 7.41 VBG pCO2 46 VBG HCO3 26.2 VBG Total CO2 30.6 H VBG O2 Sat (Calc) 33.8 L VBG Base Excess 3.8 H VBG Potassium 4.7 Glucose 150 H Lactate 1.3 FiO2 21.0 Sodium 139.0 Potassium Chloride 106.0 Carbon Dioxide Anion Gap BUN Creatinine Est GFR ( Amer) Est GFR (Non-Af Amer) POC Glucose (mg/dL) Random Glucose Calcium Total Bilirubin AST ALT Alkaline Phosphatase Troponin I < 0.0120 NT-Pro-B Natriuret Pep Total Protein Albumin Globulin Albumin/Globulin Ratio Thyroxine (T4) Total T3 T3 Uptake TSH 3rd Generation Venous Blood Potassium 4.7 Blood Type O POSITIVE Blood Type Confirm Antibody Screen Negative BBK History Checked No verified bt 09/13/18 09/13/18 09/13/18 06:40 06:40 06:40 WBC 7.9 RBC 3.60 L Hgb 10.7 L Hct 32.8 L MCV 91.1 MCH 29.6 MCHC 32.6 L RDW 14.2 Plt Count 291 MPV 9.9 Neut % (Auto) 48.7 L Lymph % (Auto) 37.1 Boyd % (Auto) 9.2 Eos % (Auto) 3.1 Baso % (Auto) 1.9 Neut # (Auto) 3.9 Lymph # (Auto) 2.9 Boyd # (Auto) 0.7 Eos # (Auto) 0.2 Baso # (Auto) 0.2 pO2 VBG pH VBG pCO2 VBG HCO3 VBG Total CO2 VBG O2 Sat (Calc) VBG Base Excess VBG Potassium Glucose Lactate FiO2 Sodium 141 Potassium 4.3 Chloride 107 Carbon Dioxide 25 Anion Gap 13 BUN 14 Creatinine 0.8 Est GFR ( Amer) > 60 Est GFR (Non-Af Amer) > 60 POC Glucose (mg/dL) Random Glucose 130 H Calcium 10.0 Total Bilirubin 0.2 AST 23 ALT 25 Alkaline Phosphatase 110 Troponin I NT-Pro-B Natriuret Pep Total Protein 7.5 Albumin 4.0 Globulin 3.5 Albumin/Globulin Ratio 1.1 Thyroxine (T4) 8.88 Total T3 1.09 L T3 Uptake 31.3 TSH 3rd Generation 1.71 Venous Blood Potassium Blood Type Blood Type Confirm O POSITIVE Antibody Screen BBK History Checked Assessment & Plan (1) Chest pain Status: Acute (2) Anemia Status: Chronic Priority: High - Assessment and Plan (Free Text) Assessment: Assessment/Plan: 73 YO female with PMHx of HTN, gastritis, DM, TIA and hypothyroidism is admitted for r/o ACS/CA. Chest pain -acute and resolved -no evidence of cardic in nature -EKG with no acute ST or T wave changes -trops neg x 2 -cardiology on consult, unlikely cardiac, d/c home with follow up with PMD for additional testing -will d/c patient home with follow up with PMD. Cont ASA 81mg PO daily <Chucky Stokes - Last Filed: 09/13/18 09:22> Results - Vital Signs Recent Vital Signs: Last Vital Signs Temp 98.5 F 09/13/18 08:09 Pulse 79 09/13/18 08:32 Resp 17 09/13/18 08:09 BP 146/80 09/13/18 08:32 Pulse Ox 97 09/13/18 08:09 - Labs Result Diagrams: 09/13/18 06:40 09/13/18 06:40 Labs: Laboratory Results - last 24 hr 09/12/18 09/12/18 09/12/18 18:38 19:39 19:39 WBC 8.0 RBC 3.65 L Hgb 11.0 L Hct 33.1 L MCV 90.5 MCH 30.0 MCHC 33.1 RDW 14.0 Plt Count 303 MPV 10.6 Neut % (Auto) 61.7 Lymph % (Auto) 26.0 Boyd % (Auto) 8.5 Eos % (Auto) 2.7 Baso % (Auto) 1.1 Neut # (Auto) 4.9 Lymph # (Auto) 2.1 Boyd # (Auto) 0.7 Eos # (Auto) 0.2 Baso # (Auto) 0.1 pO2 VBG pH VBG pCO2 VBG HCO3 VBG Total CO2 VBG O2 Sat (Calc) VBG Base Excess VBG Potassium Glucose Lactate FiO2 Sodium 139 Potassium 4.4 Chloride 103 Carbon Dioxide 26 Anion Gap 14 BUN 17 Creatinine 0.8 Est GFR ( Amer) > 60 Est GFR (Non-Af Amer) > 60 POC Glucose (mg/dL) 207 H Random Glucose 182 H Calcium 10.5 H Total Bilirubin 0.2 AST 23 ALT 30 Alkaline Phosphatase 126 D Troponin I < 0.0120 NT-Pro-B Natriuret Pep 81.2 Total Protein 8.0 Albumin 4.3 Globulin 3.7 Albumin/Globulin Ratio 1.2 Thyroxine (T4) Total T3 T3 Uptake TSH 3rd Generation Venous Blood Potassium Blood Type Blood Type Confirm Antibody Screen BBK History Checked 09/12/18 09/12/18 09/13/18 20:36 22:07 03:30 WBC RBC Hgb Hct MCV MCH MCHC RDW Plt Count MPV Neut % (Auto) Lymph % (Auto) Boyd % (Auto) Eos % (Auto) Baso % (Auto) Neut # (Auto) Lymph # (Auto) Boyd # (Auto) Eos # (Auto) Baso # (Auto) pO2 21 L VBG pH 7.41 VBG pCO2 46 VBG HCO3 26.2 VBG Total CO2 30.6 H VBG O2 Sat (Calc) 33.8 L VBG Base Excess 3.8 H VBG Potassium 4.7 Glucose 150 H Lactate 1.3 FiO2 21.0 Sodium 139.0 Potassium Chloride 106.0 Carbon Dioxide Anion Gap BUN Creatinine Est GFR ( Amer) Est GFR (Non-Af Amer) POC Glucose (mg/dL) Random Glucose Calcium Total Bilirubin AST ALT Alkaline Phosphatase Troponin I < 0.0120 NT-Pro-B Natriuret Pep Total Protein Albumin Globulin Albumin/Globulin Ratio Thyroxine (T4) Total T3 T3 Uptake TSH 3rd Generation Venous Blood Potassium 4.7 Blood Type O POSITIVE Blood Type Confirm Antibody Screen Negative BBK History Checked No verified bt 09/13/18 09/13/18 09/13/18 06:40 06:40 06:40 WBC 7.9 RBC 3.60 L Hgb 10.7 L Hct 32.8 L MCV 91.1 MCH 29.6 MCHC 32.6 L RDW 14.2 Plt Count 291 MPV 9.9 Neut % (Auto) 48.7 L Lymph % (Auto) 37.1 Boyd % (Auto) 9.2 Eos % (Auto) 3.1 Baso % (Auto) 1.9 Neut # (Auto) 3.9 Lymph # (Auto) 2.9 Boyd # (Auto) 0.7 Eos # (Auto) 0.2 Baso # (Auto) 0.2 pO2 VBG pH VBG pCO2 VBG HCO3 VBG Total CO2 VBG O2 Sat (Calc) VBG Base Excess VBG Potassium Glucose Lactate FiO2 Sodium 141 Potassium 4.3 Chloride 107 Carbon Dioxide 25 Anion Gap 13 BUN 14 Creatinine 0.8 Est GFR ( Amer) > 60 Est GFR (Non-Af Amer) > 60 POC Glucose (mg/dL) Random Glucose 130 H Calcium 10.0 Total Bilirubin 0.2 AST 23 ALT 25 Alkaline Phosphatase 110 Troponin I NT-Pro-B Natriuret Pep Total Protein 7.5 Albumin 4.0 Globulin 3.5 Albumin/Globulin Ratio 1.1 Thyroxine (T4) 8.88 Total T3 1.09 L T3 Uptake 31.3 TSH 3rd Generation 1.71 Venous Blood Potassium Blood Type Blood Type Confirm O POSITIVE Antibody Screen BBK History Checked Assessment & Plan - Assessment and Plan (Free Text) Assessment: Patient was personally seen and examined by me in rounds with residents. Available labs and diagnostic data reviewed. Case, Patient's condition and management plan discussed with residents in rounds. Agree with resident's progress note. Plan: As ordered.
--- NOTE | 2018-09-13 08:47 | RAD ---
Date of service: 09/12/2018 HISTORY: possible admission COMPARISON: Chest radiographs 08/24/2018. FINDINGS: LUNGS: No active pulmonary disease. Small granuloma again seen at the inferior margins right pulmonary apex. PLEURA: No significant pleural effusion identified, no pneumothorax apparent. CARDIOVASCULAR: Calcific atherosclerotic changes are seen related to the thoracic aorta. Upper limits normal cardiac size reiterated. No pulmonary vascular congestion. OSSEOUS STRUCTURES: No significant abnormalities. VISUALIZED UPPER ABDOMEN: Normal. OTHER FINDINGS: None. IMPRESSION: Upper limits normal cardiac size reiterated. No acute infiltrate, pleural effusion or pulmonary vascular congestion evident.
[2018-09-13] MEDS ORDERED: Pantoprazole 40 mg EC Tab PO SCH (09:00)
--- NOTE | 2018-09-13 10:18 | CT ---
Date of service: 09/12/2018 PROCEDURE: CT HEAD WITHOUT CONTRAST. HISTORY: left leg tingling and FERRER COMPARISON: CT head dated 06/01/2018. TECHNIQUE: Axial computed tomography images were obtained through the head/brain without intravenous contrast. Radiation dose: Total exam DLP = 718.58 mGy-cm. This CT exam was performed using one or more of the following dose reduction techniques: Automated exposure control, adjustment of the mA and/or kV according to patient size, and/or use of iterative reconstruction technique. FINDINGS: HEMORRHAGE: No intracranial hemorrhage. BRAIN: No mass effect or edema. Mild atrophy. Mild chronic microvascular ischemic changes. VENTRICLES: Unremarkable. No hydrocephalus. CALVARIUM: Unremarkable. PARANASAL SINUSES: Unremarkable as visualized. No significant inflammatory changes. MASTOID AIR CELLS: Unremarkable as visualized. No inflammatory changes. OTHER FINDINGS: None. IMPRESSION: No acute intracranial pathology. Mild age-related changes. No significant interval change.
[2018-09-13 16:12] VITALS: PULSE 86; O2SAT 94
== END 2018-09-13 09:46 | disposition home or self-care (01) ==
LOC: H.ER 18:07 → H.ERHOLD 20:57
PROVIDERS: ADMIT Internal Medicine; ATTEND Internal Medicine
DX: R07.9 Chest pain, unspecified (principal); D64.9 Anemia, unspecified; M54.2 Cervicalgia; R51 Headache; E03.9 Hypothyroidism, unspecified; E11.9 Type 2 diabetes mellitus without complications; E78.00 Pure hypercholesterolemia, unspecified; I10 Essential (primary) hypertension; K21.9 Gastro-esophageal reflux disease without esophagitis; Z86.73 Personal history of transient ischemic attack (TIA), and cerebral infarction without residual deficits; K29.70 Gastritis, unspecified, without bleeding; Z79.84 Long term (current) use of oral hypoglycemic drugs
CPT/HCPCS: 70450; 71045; 80053; 82803; 82948; 83036; 83880; 84436; 84443; 84479; 84480; 84484; 85025; 86850; 86900; 99285; G0378